=== PATIENT | female | born 1930 | race Caucasian/White ===

== ENCOUNTER 2016-11-26 00:30 | Emergency (ER) | payer MEDICARE, BC ==
[2016-11-26 01:34] LABS: ABSOLUTE BASOPHILS # (AUTO) 0.1 10^3/uL (0.0-0.2); ABSOLUTE EOSINOPHILS # (AUTO) 0.5 10^3/uL (0.0-0.6); ABSOLUTE LYMPHOCYTES (AUTO) 1.4 10^3/uL (0.5-4.7); ABSOLUTE MONOCYTES (AUTO) 0.6 10^3/uL (0.1-1.4); ABSOLUTE NEUT (AUTO) 3.9 10^3/uL (1.7-8.2); BASOPHILS % (AUTO) 0.8 % (0-2); HEMOGLOBIN 12.4 g/dL (12.0-15.5); HGB HCT DIFFERENCE 1.2; LYMPHOCYTES % (AUTO) 20.8 % (13-45); MEAN CORPUSCULAR HEMOGLOBIN 31.7 pg (27.0-33.4); MEAN CORPUSCULAR HGB CONC 34.3 g/dL (32.0-36.0); MEAN CORPUSCULAR VOLUME 93 fl (80-97); MONOCYTES % (AUTO) 9.6 % (3-13); RED CELL DISTRIBUTION WIDTH 14.2 % (11.5-14.0); SEGMENTED NEUTROPHILS % (AUTO) 60.8 % (42-78); WHITE BLOOD COUNT 6.5 10^3/uL (4.0-10.5)
[2016-11-26 01:38] LABS: ALANINE AMINOTRANSFERASE 34 U/L (9-52); ALBUMIN 3.6 g/dL (3.5-5.0); ALKALINE PHOSPHATASE 90 U/L (38-126); ANION GAP 10 (5-19); ASPARTATE AMINO TRANSFERASE 30 U/L (14-36); BILIRUBIN,TOTAL 0.4 mg/dL (0.2-1.3); BLOOD UREA NITROGEN 27 mg/dL (7-20); CALCIUM 9.7 mg/dL (8.4-10.2); CARBON DIOXIDE 29 mmol/L (22-30); CHLORIDE 105 mmol/L (98-107); CREATININE RESULT 0.75 mg/dL (0.52-1.25); GLUCOSE 147 mg/dL (75-110); POTASSIUM 4.4 mmol/L (3.6-5.0); SODIUM 144.2 mmol/L (137-145); TOTAL PROTEIN 6.7 g/dL (6.3-8.2)
[2016-11-26] MEDS ORDERED: PHENYLEPHRINE HCL 0.5% NASAL SPRAY 15 ML NASL ONE (02:05)
--- NOTE | 2016-11-26 02:17 | ER Document Report ---
ED General - General Chief Complaint: Nose Bleed Stated Complaint: NOSE BLEEDING Notes: Patient is a 86-year-old female presents with complaint of nosebleed. Nosebleed started suddenly tonight. She says initially was cannot the right near but now is just on the back of her throat. Patient is up and exit. She is on Pradaxa for A. fib. She also has Plavix due to history of cardiac stents. No fevers. No vomiting. No diarrhea. No difficulty breathing. No other complaints at this time. TRAVEL OUTSIDE OF THE [place] IN LAST 30 DAYS: No Past Medical History - General Information source: Patient - Social History Smoking Status: Never Smoker Frequency of alcohol use: None Drug Abuse: None Family History: Reviewed & Not Pertinent - Past Medical History Cardiac Medical History: Reports: Hx Congestive Heart Failure, Hx Hypercholesterolemia, Hx Hypertension Pulmonary Medical History: Reports: Hx COPD Endocrine Medical History: Reports: Hx Diabetes Mellitus Type 1 Past Surgical History: Reports: Hx Appendectomy, Hx Cardiac Surgery - 2 stents, Hx Cholecystectomy, Hx Hysterectomy Review of Systems - Review of Systems Notes: My Normal Review Basic REVIEW OF SYSTEMS: CONSTITUTIONAL : Denies fever, chills, or sweats. Denies recent illness. EENT: Nosebleed CARDIOVASCULAR: Denies chest pain. RESPIRATORY: Denies cough, cold, or chest congestion. Denies shortness of breath, difficulty breathing, or wheezing. MUSCULOSKELETAL: Denies neck or back pain or joint pain or swelling. SKIN: Denies rash or skin lesions. HEMATOLOGIC : Takes blood thinners NEUROLOGICAL: Denies altered mental status or loss of consciousness. ALL OTHER SYSTEMS REVIEWED AND NEGATIVE. Physical Exam - Vital signs Vitals: Resp BP Pulse Ox 21 H 159/81 H 96 11/26/16 00:51 11/26/16 00:51 11/26/16 00:51 - Notes Notes: General Appearance: Well nourished, alert, cooperative, no acute distress, no obvious discomfort. Well-appearing. Vitals: reviewed, See vital signs table. Head: no swelling or tenderness to the head Eyes: PERRL, EOMI, Conjuctiva clear Mouth: No decreasd moisture Throat: No tonsillar inflammation, No airway obstruction, No lymphadenopathy. Pharynx: Some blood in posterior pharynx Neck: Supple, no neck tenderness, No thyromegaly Nose: Small amount of blood in anterior right near. No active bleeding from anterior source. Lungs: No wheezing, No rales, No rhonci, No accessory muscle use, good air exchange bilaterally. Heart: Normal rate, irregular rythm, No murmur, no rub Abdomen: Normal BS, soft, No rigidity, No abdominal tenderness, No guarding, no rebound, no abdominal masses, no organomegaly Extremities: strength 5/5 in all extremities, good pulses in all extremities, no swelling or tenderness in the extremities, no edema. Skin: warm, dry, appropriate color, no rash Neuro: speech clear, oriented x 3, normal affect, responds appropriately to questions. Course - Vital Signs Vital signs: Temp Pulse Resp BP Pulse Ox 20 165/71 H 92 11/26/16 04:01 11/26/16 04:01 11/26/16 04:01 - Laboratory Result Diagrams: 11/26/16 00:57 11/26/16 00:57 Laboratory results interpreted by me: 11/26/16 11/26/16 11/26/16 00:57 00:57 00:57 RDW 14.2 H Eosinophils % 8.0 H PT 17.0 H BUN 27 H Glucose 147 H - EKG Interpretation by Me Additional EKG results interpreted by me: 11/26/16 02:17 EKG is reviewed and interpreted by me. EKG shows atrial fibrillation with rate of [address] segment elevation. Mild ST segment depression in lead V6. QRS duration QTC intervals are within normal range. No old EKG available for comparison. - Transfer of Care Notes: 11/26/16 06:53 I initially placed a cotton ball soaked with Jamey-Synephrine nasal spray in the patient's nose. This initially stop the bleeding. When patient went to be discharged to set up in the start bleeding again. I then placed a Rhino Rocket nasal packing. Patient now has good control the bleeding is had no further bleeding. She is on digoxin for A. fib. I encourage her to hold tonight's dose of atrial fibrillation. I encourage her to restart atrial fibrillation on Saturday. I encouraged them to return to ER immediately if there are any fevers or any recurrent bleeding. Only 1 nare had to be packed. Patient and family agree with plan and she will be discharged home. I did forget to put the discharge instructions have the packing removed in 2 days. I did call back and speak with the family just to make sure they are aware of this. They are aware of this and said they would come back Saturday to have the packing removed and allow us to reevaluate her nose. Dictation of this chart was performed using voice recognition software; therefore, there may be some unintended grammatical errors. 11/26/16 07:10 Discharge - Discharge Clinical Impression: Epistaxis Condition: Good Disposition: HOME, SELF-CARE Additional Instructions: Nosebleed Instructions There is a significant chance of re-bleeding following a nosebleed. Proper care makes this less likely. Do not touch the nose for 24 hours. Do not blow the nose forcefully for one week. After 24 hours, gently apply Vaseline ointment to both nostrils with the tip of a finger, three times a day, for one week. It's normal to have a bloody mucous discharge for a few days. If active bleeding recurs, blow all the blood from the nose, then sit quietly and pinch the nose as firmly as possible for 10 minutes. If this does not stop the bleeding, return for further care. If packing was left in the nose and it starts to come out of the nostril, either tuck it back in or cut it off. Don't pull it out. Return for recheck and removal of the packing when instructed. Persons with frequent nosebleeds should avoid aspirin (unless prescribed for another reason). Humidity in the bedroom, and petroleum jelly applied to the nostrils at night may help. Please hold your Pradaxa until Saturday. You can take it again started Saturday. Please return to the ER immediately if you have recurrent bleeding that does not stop after holding pressure to your nose for 30 minutes.
[2016-11-26] MEDS ORDERED: PHENYLEPHRINE HCL 0.5% NASAL SPRAY 15 ML ONE (02:24)
[2016-11-26 04:46] VITALS: BP 165/71
--- NOTE | 2016-11-26 12:21 | EKG REPORT ---
SEVERITY:- ABNORMAL ECG - ATRIAL FIBRILLATION VENTRICULAR PREMATURE COMPLEX ANTERIOR INFARCT, AGE INDETERMINATE BORDERLINE T ABNORMALITIES, INFERIOR LEADS [facility] : Confirmed by: Malina Garrett 26-Nov-2016 12:21:02
== END 2016-11-26 05:12 | disposition home or self-care (01) ==
LOC: ER 00:30
PROC: 2Y41X5Z Packing of Nasal Region using Packing Material (ICD-10-PCS; principal; 2016-11-26)
DX: R04.0 Epistaxis (principal); I48.91 Unspecified atrial fibrillation; I50.9 Heart failure, unspecified; E78.00 Pure hypercholesterolemia, unspecified; I10 Essential (primary) hypertension; J44.9 Chronic obstructive pulmonary disease, unspecified; E10.9 Type 1 diabetes mellitus without complications; Z79.01 Long term (current) use of anticoagulants; Z90.49 Acquired absence of other specified parts of digestive tract; Z90.710 Acquired absence of both cervix and uterus
CPT/HCPCS: 36415; 80053; 85025; 85610; 93005; 93010; 99283; J3490

== ENCOUNTER 2016-11-28 09:48 | Emergency (ER) | payer MEDICARE, BC ==
--- NOTE | 2016-11-28 10:35 | ER Document Report ---
ED Medical Screen (RME) - General Chief Complaint: Nose Problem Stated Complaint: FOLLOW UP NOSE PLUG REMOVAL Notes: 86 yo female here for removal of nasal tampon placed in ER 3 days ago. pt on plavix and prodaxa. no bleeding since tampon insertion. pt c/o right facial pain/pressure, headache. low grade fever. Also c/o dysuria, frequency x 4 days. + hx/o frequent UTI. no back pain or abdominal pain. no nausea or vomiting TRAVEL OUTSIDE OF THE [place] IN LAST 30 DAYS: No - Related Data Allergies/Adverse Reactions: procaine [From Novocain] Allergy (Verified 11/28/16 10:09) Past Medical History - Social History Chew tobacco use (# tins/day): No Frequency of alcohol use: None Drug Abuse: None - Past Medical History Cardiac Medical History: Reports: Hx Congestive Heart Failure, Hx Hypercholesterolemia, Hx Hypertension Pulmonary Medical History: Reports: Hx COPD Endocrine Medical History: Reports: Hx Diabetes Mellitus Type 1 Past Surgical History: Reports: Hx Appendectomy, Hx Cardiac Surgery - 2 stents, Hx Cholecystectomy, Hx Hysterectomy Physical Exam - Vital signs Vitals: Temp Pulse Resp BP Pulse Ox 98.4 F 31 L 18 108/78 94 11/28/16 10:10 11/28/16 10:10 11/28/16 10:10 11/28/16 10:10 11/28/16 10:10 Course - Vital Signs Vital signs: Temp Pulse Resp BP Pulse Ox 98.4 F 31 L 18 108/78 94 11/28/16 10:10 11/28/16 10:10 11/28/16 10:10 11/28/16 10:10 11/28/16 10:10
[2016-11-28 11:16] LABS: AMORPHOUS SEDIMENT,URINE TRACE /HPF; APPEARANCE,URINE CLOUDY; BILIRUBIN,URINE NEGATIVE (NEGATIVE); GLUCOSE, URINE >=500 mg/dL (NEGATIVE); KETONES,URINE NEGATIVE (NEGATIVE); LEUKOCYTE ESTERASE,URINE LARGE (NEGATIVE); NITRITE,URINE POSITIVE (NEGATIVE); PROTEIN,URINE NEGATIVE (NEGATIVE); UROBILINOGEN,URINE NEGATIVE mg/dL (<2.0)
--- NOTE | 2016-11-28 12:01 | ER Document Report ---
ED ENT - General Chief Complaint: Nose Problem Stated Complaint: FOLLOW UP NOSE PLUG REMOVAL Time seen by provider: 11:57 Mode of Arrival: Ambulatory Information source: Patient Notes: This is an 86-year-old female with a history of hypertension, atrial fibrillation, coronary artery disease and CHF. The patient presented 2 days ago for epistaxis and had a right nasal trumpet placed. She is here for the right nasal packing removal. Additionally, patient states that she just recently developed symptoms of UTI: Urinary frequency and burning. She denies fever, chills, nausea vomiting. TRAVEL OUTSIDE OF THE [place] IN LAST 30 DAYS: No - HPI Patient complains to provider of: Nose problem, Other - UTI symptoms Onset: Just prior to arrival Onset/Duration: Sudden Quality of pain: denies: Achy, Dull, Sharp, Stabbing, Other Severity: None Pain Level: Denies Context: denies: Allergies, Injury, Recent Illness, Travel, Other Location of pain: No: Ears, Face, Jaw, Neck, Nose, Sinus, Throat, Tooth, Other Associated symptoms: Other - Dysuria. denies: Chills, Fever Similar symptoms previously: Yes Recently seen / treated by doctor: Yes - Related Data Allergies/Adverse Reactions: procaine [From Novocain] Allergy (Verified 11/28/16 11:57) Past Medical History - General Information source: Patient - Social History Smoking Status: Never Smoker Cigarette use (# per day): No Chew tobacco use (# tins/day): No Frequency of alcohol use: None Drug Abuse: None Lives with: Family Family History: Reviewed & Not Pertinent Patient has suicidal ideation: No Patient has homicidal ideation: No - Past Medical History Cardiac Medical History: Reports: Hx Congestive Heart Failure, Hx Hypercholesterolemia, Hx Hypertension Pulmonary Medical History: Reports: Hx COPD Endocrine Medical History: Reports: Hx Diabetes Mellitus Type 1 Past Surgical History: Reports: Hx Appendectomy, Hx Cardiac Surgery - 2 stents, Hx Cholecystectomy, Hx Hysterectomy Review of Systems - Review of Systems Constitutional: denies: Chills, Fever EENT: See HPI Cardiovascular: No symptoms reported Respiratory: No symptoms reported Gastrointestinal: No symptoms reported Genitourinary: See HPI Female Genitourinary: No symptoms reported Musculoskeletal: No symptoms reported Skin: No symptoms reported Hematologic/Lymphatic: No symptoms reported Neurological/Psychological: No symptoms reported Physical Exam - Vital signs Vitals: Temp Pulse Resp BP Pulse Ox 98.4 F 31 L 18 108/78 94 11/28/16 10:10 11/28/16 10:10 11/28/16 10:10 11/28/16 10:10 11/28/16 10:10 Notes: Physical exam: GENERAL: 86-year-old female, alert and oriented 3, no acute distress HEAD: Atraumatic, normocephalic. EYES: Pupils equal round and reactive to light, extraocular movements intact, sclera anicteric, conjunctiva are normal. ENT: Right nasal packing with dried blood, no active bleeding NECK: Normal range of motion, supple LUNGS: Breath sounds clear to auscultation bilaterally and equal. No wheezes rales or rhonchi. HEART: Regular rate and rhythm without murmurs, rubs or gallops. ABDOMEN: Soft, nontender, normoactive bowel sounds. No guarding, no rebound. No masses appreciated. EXTREMITIES: Normal range of motion, no pitting or edema. No clubbing or cyanosis. NEUROLOGICAL: Cranial nerves II through XII grossly intact. Moving all extremities PSYCH: Normal mood, normal affect. Course - Re-evaluation Re-evalutation: 11/28/16 11:59 Saline inserted to the nasal packing via sterile saline syringe. The air cuff was deflated. Nose packing removed. Patient observed for recurrent bleeding. She is doing fine. Instructions given. 11/28/16 11:59 On review of the urine analysis, she does have a urine infection. She cannot remember her previous antibiotics. She does not know if she has any problems with sulfa medicines. 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 I've given the patient Keflex given the number of medicines she is on. I urine culture was sent. 11/28/16 13:08 - Vital Signs Vital signs: Temp Pulse Resp BP Pulse Ox 98.9 F 79 18 163/72 H 94 11/28/16 12:30 11/28/16 12:30 11/28/16 12:30 11/28/16 12:30 11/28/16 12:30 - Laboratory Laboratory results interpreted by me: 11/28/16 11:00 Urine Glucose (UA) >=500 H Urine Nitrite POSITIVE H Ur Leukocyte Esterase LARGE H Discharge - Discharge Clinical Impression: epistaxis, UTI Condition: Stable Disposition: HOME, SELF-CARE Instructions: Urinary Tract Infection ([facility]), Nosebleed Instructions ([facility]) Additional Instructions: Regarding the urine infection: A urine culture was sent and we will contact her in 2 days if the bacteria grows out. Take the Keflex as prescribed. Regarding the nose bleed: Continue the Pradaxa only once daily for the next 2 days and then go back to usual dose. Avoid sneezing. Avoid blowing her nose. Follow-up with ENT: [facility] [address] [place] [address] Toll Free: They do have an office in town: Call the number above for the next available in town office appointment. Prescriptions: Cephalexin Monohydrate [Keflex 500 mg Capsule] 500 mg PO QID #20 capsule
[2016-11-28 12:39] VITALS: BP 163/72
== END 2016-11-28 12:39 | disposition home or self-care (01) ==
LOC: ER 09:48
DX: R04.0 Epistaxis (principal); N39.0 Urinary tract infection, site not specified; I10 Essential (primary) hypertension; I48.91 Unspecified atrial fibrillation; I25.10 Atherosclerotic heart disease of native coronary artery without angina pectoris; I50.9 Heart failure, unspecified
CPT/HCPCS: 81001; 87086; 87088; 87186; 99283

== ENCOUNTER → 2018-06-25 | Outpatient (CLI) | payer MEDICARE, BC ==
--- NOTE | 2018-06-25 14:29 | RADIOLOGY REPORT (SQ) ---
EXAM DESCRIPTION: CT ABD/PELVIS NO ORAL OR IV COMPLETED DATE/TIME: 06/25/2018 2:09 pm REASON FOR STUDY: KIDNEY STONE (N20.0) N20.0 CALCULUS OF KIDNEY R31.0 GROSS HEMATURIA COMPARISON: None. TECHNIQUE: CT scan of the abdomen and pelvis performed without intravenous or oral contrast. Images reviewed with lung, soft tissue, and bone windows. Reconstructed coronal and sagittal MPR images revi ewed. All images stored on PACS. All CT scanners at this facility use dose modulation, iterative reconstruction, and/or weight based d osing when appropriate to reduce radiation dose to as low as reasonably achievable (ALARA). [facility]: Dose Right [facility]: CareDose [facility]: Dose Right [facility]: Teradose 4D [facility]: [employer] RADIATION DOSE: CT Rad equipment meets quality standard of care and radiation dose reduction techniq ues were employed. CTDIvol: 6.7 mGy. DLP: 292 mGy-cm.mGy. LIMITATIONS: Significant streak artifact from metallic hardware in the spine. FINDINGS: LOWER CHEST: No significant findings. No nodules or infiltrates. NON-CONTRASTED LIVER, SPLEEN, ADRENALS: Evaluation limited by lack of IV contrast. No identified sign ificant masses. Punctate calcifications in the spleen consistent with calcified granulomas. PANCREAS: No masses. No peripancreatic inflammatory changes. GALLBLADDER: Surgically absent. RIGHT KIDNEY AND URETER: Possible cortical cyst, measuring 9 mm. No suspicious masses. Assessment li mited by lack of IV contrast. No significant calcifications. No hydronephrosis or hydroureter. LEFT KIDNEY AND URETER: No suspicious masses. Assessment limited by lack of IV contrast. Several ca lyceal calculi, the largest measuring 8 mm. No hydronephrosis or hydroureter. AORTA AND RETROPERITONEUM: No aneurysm. No retroperitoneal masses or adenopathy. BOWEL AND PERITONEAL CAVITY: No obvious masses or inflammatory changes. No free fluid. APPENDIX: Surgically absent. PELVIS, BLADDER, AND ABDOMINAL WALL:No abnormal masses. No free fluid. Bladder normal. BONES: Degenerative changes in the spine. Surgical changes with hardware. OTHER: No other significant finding. IMPRESSION: 1. NUMEROUS NONOBSTRUCTING CALYCEAL CALCULI IN THE LEFT KIDNEY. NO HYDRONEPHROSIS OR HYDROURETER. L IMITED VISUALIZATION OF THE URETER DUE TO METALLIC ARTIFACT FROM SPINAL HARDWARE. 2. POSSIBLE CORTICAL CYST IN THE RIGHT KIDNEY. LIMITED EVALUATION DUE TO LACK OF CONTRAST AND METALL IC ARTIFACT FROM SPINAL HARDWARE. 3. NO OTHER SIGNIFICANT OR ACUTE PROCESS IN THE ABDOMEN OR PELVIS. COMMENT: Quality ID # [id number]: Final reports with documentation of one or more dose reduction techniques (e.g., Automated exposure control, adjustment of the mA and/or kV according to patient size, use of iterative reconstruction technique) TECHNICAL DOCUMENTATION: JOB ID: [id number] [employer]- All Rights Reserved Reading location - IP/workstation name: [email or web address] [id number]
== END ==
LOC: RAD 13:27
PROVIDERS: ATTEND Family Medicine
DX: N20.0 Calculus of kidney (principal)
CPT/HCPCS: 74176

== ENCOUNTER 2018-10-17 07:56 | Inpatient (IN) | payer MEDICARE, BC ==
[2018-10-17] MEDS ORDERED: ASPIRIN 81 MG TABLET, CHEWABLE PO ONE (08:01)
--- NOTE | 2018-10-17 08:13 | ER Document Report ---
ED Cardiac - General Mode of Arrival: Ambulatory Information source: Patient TRAVEL OUTSIDE OF THE [place] IN LAST 30 DAYS: No <JANET PRINCE - Last Filed: 10/17/18 14:55> <MISHEL HARRISON - Last Filed: 10/17/18 14:59> - General Stated Complaint: CHEST PAIN Time Seen by Provider: 10/17/18 08:01 Notes: 88-year-old female who presents to the emergency department today with complaints of an "angina attack". Patient states when she woke up this morning she was also having indigestion. Patient states she has frequent bouts of angina, with her last episode occurring last week. Patient states last week it took 3 nitroglycerin to make her pain free. Patient states she has not had a cardiac catheterization recently, but she cannot remember the last time she had one. Patient has taken aspirin and 2 nitroglycerin at home and also 2 more NTG with EMS which still did not relieve her pain. (JANET PRINCE) - Related Data Allergies/Adverse Reactions: procaine [From Novocain] Allergy (Verified 11/28/16 11:57) Past Medical History - General Information source: Patient - Social History Smoking Status: Never Smoker Cigarette use (# per day): No Frequency of alcohol use: None Drug Abuse: None Family History: Reviewed & Not Pertinent - Past Medical History Cardiac Medical History: Reports: Hx Congestive Heart Failure, Hx Hypercholesterolemia, Hx Hypertension Pulmonary Medical History: Reports: Hx COPD Endocrine Medical History: Reports: Hx Diabetes Mellitus Type 1 Past Surgical History: Reports: Hx Appendectomy, Hx Cardiac Surgery - 2 stents, Hx Cholecystectomy, Hx Hysterectomy <JANET PRINCE - Last Filed: 10/17/18 14:55> Review of Systems - Review of Systems Constitutional: No symptoms reported EENT: No symptoms reported Cardiovascular: See HPI, Chest pain Respiratory: denies: Short of breath Gastrointestinal: No symptoms reported Genitourinary: No symptoms reported Female Genitourinary: No symptoms reported Musculoskeletal: No symptoms reported Skin: No symptoms reported Hematologic/Lymphatic: No symptoms reported Neurological/Psychological: No symptoms reported -: Yes All other systems reviewed and negative <JANET PRINCE - Last Filed: 10/17/18 14:55> Physical Exam <JANET PRINCE - Last Filed: 10/17/18 14:55> <MISHEL HARRISON - Last Filed: 10/17/18 14:59> - Vital signs Vitals: Resp 13 10/17/18 10:12 - Notes Notes: PHYSICAL EXAM GENERAL: Alert, interacts well. No acute distress. Pulse oximetry interpretation : Saturating 96% on room air, not hypoxic per my interpretation. HEAD: Normocephalic, atraumatic. EYES: Pupils equal, round, and reactive to light. Extraocular movements intact. ENT: Oral mucosa moist, tongue midline. NECK: Full range of motion. Supple. Trachea midline. LUNGS: Crackles at the bases bilaterally, no wheezes, rales, or rhonchi. No respiratory distress. HEART: Regular rate and rhythm. 2/6 systolic ejection murmur, no gallops or rubs. ABDOMEN: Soft, non-tender. Non-distended. Bowel sounds present in all 4 quadrants. No guarding, rigidity, or rebound. EXTREMITIES: Moves all 4 extremities spontaneously. 2+ pitting edema bilaterally , radial and dorsalis pedis pulses 2/4 bilaterally. No cyanosis. NEUROLOGICAL: Alert and oriented x3. Normal speech. PSYCH: Normal affect, normal mood. SKIN: Warm and dry. No rashes or lesions noted. (JANET PRINCE) Course - Laboratory Result Diagrams: 10/17/18 08:56 10/17/18 08:56 <JANET PRINCE - Last Filed: 10/17/18 14:55> - Laboratory Result Diagrams: 10/17/18 08:56 10/17/18 08:56 <MISHEL HARRISON - Last Filed: 10/17/18 14:59> - Re-evaluation Re-evalutation: 10/17/18 10:41 CBC shows slight low platelets 138, CMP shows slightly elevated BUN at 23, troponin negative at 0.016, proBNP elevated at 1380. Patient was given Lasix, patient continues to have chest pain after taking multiple nitroglycerin although every time she takes nitroglycerin it does decrease significantly, patient is now been started on nitro drip, she is currently at 30 mcgs per minute, this is taken her pain down to a 2 at this point we will continue to increase so long as her pressure tolerates it. EKG is nonischemic and it was repeated when her chest pain worsened. Chest x-ray shows no acute process. If the patient is able to be chest pain-free on a nitro drip we will then pursue admission at this hospital. 10/17/18 11:57 Nitroglycerin drip is at 55 mcgs per minute, she is now pain-free. Patient was discussed with Dr. Bharat Kiran her primary care physician who agrees to admit the patient to his service and requested consult with Dr. Kearney, this will be entered into the computer. 10/17/18 14:59 (MISHEL HARRISON) - Vital Signs Vital signs: Temp Pulse Resp BP Pulse Ox 19 141/67 H 95 10/17/18 14:01 10/17/18 14:16 10/17/18 14:16 - Laboratory Laboratory results interpreted by me: 10/17/18 10/17/18 10/17/18 08:56 08:56 08:56 RDW 14.3 H Plt Count 138 L BUN 23 H Glucose 139 H NT-Pro-B Natriuret Pep 1380 H - EKG Interpretation by Me Additional EKG results interpreted by me: 10/17/18 10:42 EKG shows atrial fibrillation at a rate of 63, left bundle branch block, negative sgarbossa criteria, no ST segment elevations or depressions, biphasic T waves in the V5 and V6 per my interpretation. 10/17/18 11:57 Repeat EKG shows atrial fibrillation at a rate of 63, interventricular conduction delay with left axis deviation, LVH, no ST segment elevations or depressions, T wave inversions in 1 and aVL unchanged from prior EKG, biphasic T wave in V6, the biphasic T wave in V5 has since resolved per my interpretation. (MISHEL HARRISON) Critical Care Note - Critical Care Note Total time excluding time spent on procedures (mins): 55 <MISHEL HARRISON - Last Filed: 10/17/18 14:59> Discharge <JANET PRINCE - Last Filed: 10/17/18 14:55> - Discharge Admitting Provider: [facility] Admitted: [facility] <MISHEL HARRISON - Last Filed: 10/17/18 14:59> - Discharge Clinical Impression: Chest pain, rule out acute myocardial infarction Condition: Fair Disposition: ADMITTED INPATIENT Scribe Attestation: 10/17/18 14:59 I personally performed the services described in the documentation, reviewed and edited the documentation which was dictated to the scribe in my presence, and it accurately records my words and actions. (MISHEL HARRISON) Scribe Documentation - Scribe Written by Isrraelibe:: Emanuel Peralta, 10/17/2018 1056 acting as scribe for :: Charles <JANET PRINCE - Last Filed: 10/17/18 14:55>
[2018-10-17] MEDS: NITROGLYCERIN 0.4 MG/TAB 25 TAB/BOTTLE SL PRN ×2 (08:56→09:46)
[2018-10-17 09:07] LABS: ABSOLUTE EOSINOPHILS # (AUTO) 0.3 10^3/uL (0.0-0.6); ABSOLUTE LYMPHOCYTES (AUTO) 1.4 10^3/uL (0.5-4.7); ABSOLUTE MONOCYTES (AUTO) 0.6 10^3/uL (0.1-1.4); ABSOLUTE NEUT (AUTO) 7.5 10^3/uL (1.7-8.2); BASOPHILS % (AUTO) 0.4 % (0-2); EOSINOPHILS % (AUTO) 3.1 % (0-6); HEMOGLOBIN 12.5 g/dL (12.0-15.5); LYMPHOCYTES % (AUTO) 14.5 % (13-45); MEAN CORPUSCULAR HEMOGLOBIN 31.9 pg (27.0-33.4); MEAN CORPUSCULAR HGB CONC 33.9 g/dL (32.0-36.0); MEAN CORPUSCULAR VOLUME 94 fl (80-97); MONOCYTES % (AUTO) 5.6 % (3-13); PLATELET COUNT 138 10^3/uL (150-450); RED BLOOD COUNT 3.93 10^6/uL (3.72-5.28); RED CELL DISTRIBUTION WIDTH 14.3 % (11.5-14.0); SEGMENTED NEUTROPHILS % (AUTO) 76.4 % (42-78); TOTAL CELLS COUNTED % (AUTO) 100 %; WHITE BLOOD COUNT 9.8 10^3/uL (4.0-10.5)
[2018-10-17 09:26] LABS: ALANINE AMINOTRANSFERASE 24 U/L (9-52); ALBUMIN 4.3 g/dL (3.5-5.0); ALKALINE PHOSPHATASE 91 U/L (38-126); ASPARTATE AMINO TRANSFERASE 30 U/L (14-36); BILIRUBIN,DIRECT 0.3 mg/dL (0.0-0.4); BILIRUBIN,TOTAL 0.5 mg/dL (0.2-1.3); BLOOD UREA NITROGEN 23 mg/dL (7-20); CARBON DIOXIDE 26 mmol/L (22-30); CREATINE KINASE 67 U/L (30-135); GLUCOSE 139 mg/dL (75-110); POTASSIUM 4.3 mmol/L (3.6-5.0); SODIUM 144.5 mmol/L (137-145); TOTAL PROTEIN 7.3 g/dL (6.3-8.2)
[2018-10-17 09:28] LABS: ANION GAP 12 (5-19); CHLORIDE 107 mmol/L (98-107)
[2018-10-17 09:38] LABS: CREATINE KINASE MB 1.72 ng/mL (<4.55); TROPONIN I 0.016 ng/mL
[2018-10-17] MEDS ORDERED: FUROSEMIDE INJ/PF 40 MG/4 ML SDV IV ONE (09:42)
[2018-10-17] MEDS ORDERED: NITROGLYCERIN/D5W 50 MG/250 ML RTUINJ IV PRN (09:42)
--- NOTE | 2018-10-17 09:43 | RADIOLOGY REPORT (SQ) ---
EXAM DESCRIPTION: CHEST SINGLE VIEW COMPLETED DATE/TIME: 10/17/2018 9:27 am REASON FOR STUDY: chest pain COMPARISON: None. EXAM PARAMETERS: NUMBER OF VIEWS: One view. TECHNIQUE: Single frontal radiographic view of the chest acquired. RADIATION DOSE: NA LIMITATIONS: None. FINDINGS: LUNGS AND PLEURA: Mild chronic appearing interstitial changes. No focal infiltrates, mass es or pneumothorax. No pleural effusion. MEDIASTINUM AND HILAR STRUCTURES: No masses. Contour normal. HEART AND VASCULAR STRUCTURES: Heart upper limits of normal in size. Normal vasculature. BONES: No acute findings. HARDWARE: None in the chest. OTHER: No other significant finding. IMPRESSION: NO ACUTE RADIOGRAPHIC FINDING IN THE CHEST. TECHNICAL DOCUMENTATION: JOB ID: [id number] [employer]- All Rights Reserved Reading location - IP/workstation name: [email or web address]
[2018-10-17] MEDS ORDERED: ACETAMINOPHEN 325 MG TABLET PO PRN (14:43)
[2018-10-17] MEDS ORDERED: MAG HYDROX/AL HYDROX/SIMETH SUSP 30 ML UDCUP PO PRN (14:43)
[2018-10-17] MEDS ORDERED: TRAMADOL HCL 50 MG TABLET PO PRN (14:47)
[2018-10-17] MEDS ORDERED: NITROGLYCERIN 0.4 MG/TAB 25 TAB/BOTTLE SL PRN (14:47)
[2018-10-17] MEDS ORDERED: INSULIN LISPRO 100 UNIT/ML 3 ML VIAL SUBCUT PRN (14:48)
[2018-10-17] MEDS ORDERED: DEXTROSE 50%-WATER 25 GM/50 ML DISP.SYRIN IV PRN ×2 (14:48)
[2018-10-17] MEDS ORDERED: DEXTROSE 40% GEL 15 GM TUBE PO PRN ×2 (14:48)
[2018-10-17] MEDS ORDERED: GLUCAGON,HUMAN RECOMB 1 MG INJ IM PRN (14:48)
--- NOTE | 2018-10-17 15:47 | PDOC H&P ---
History of Present Illness Admission Date/PCP: 10/17/18 12:13 JESSICA ZAPATA MD Patient complains of: Chest pain History of Present Illness: CARLOS GONZALEZ is a 88 year old female This is a 88-year-old female recently moved with her son last for a month with significant history of coronary artery disease status post stent placement history of chronic A. fib history of the hypertension's chronic arthritis and ongoing kidney stone problems with hematuria Patient is currently seeing Dr. Fernando outpatients cardiology and scheduled for the stress test on a Saturday According to the son patient is currently taking the nitroglycerin tablets as needed for the chest pain and patient currently using for the last several days and 2 days patient was brought to the emergency department with complaints of chest pain initial EKG and cardiac enzyme was all stable and patient was put on nitro drip When I saw the patient is patients denied any chest pain denied any shortness of breath Patient was seen by the cardiology Dr. Kearney and suggest to DC the Pradaxa and put him on Eliquis Patient's otherwise denied any short of breath and any cough no congestions no fever no chills and his son is on the bedside was concerned Past Medical History Cardiac Medical History: Reports: Atrial Fibrillation, Congestive Heart Failure , Coronary Artery Disease, Hyperlipidema, Hypertension Pulmonary Medical History: Reports: Chronic Obstructive Pulmonary Disease (COPD) Neurological Medical History: Reports: Ischemic CVA Endocrine Medical History: Reports: Diabetes Mellitus Type 2 Renal/ Medical History: Reports: Chronic Kidney Disease GI Medical History: Reports: Gastroesophageal Reflux Disease Musculoskeltal Medical History: Reports: Arthritis Hematology: Reports: Anemia Past Surgical History Past Surgical History: Reports: Appendectomy, Cardiac Catheterization, Cholecystectomy, Hysterectomy Social History Smoking Status: Never Smoker Frequency of Alcohol Use: None Hx Recreational Drug Use: No Family History Family History: Reviewed & Not Pertinent Parental Family History Reviewed: Yes Children Family History Reviewed: Yes Sibling(s) Family History Reviewed.: Yes Medication/Allergy Home Medications: Buspirone HCl [Buspar 5 mg Tablet] 5 mg PO Q12 10/17/18 Digoxin [Lanoxin 0.125 mg Tablet] 0.125 mg PO DAILY 10/17/18 Diltiazem HCl [Cardizem LA] 300 mg PO DAILY 10/17/18 Furosemide [Lasix 40 mg Tablet] 40 mg PO DAILY 10/17/18 Methimazole [Tapazole 5 mg Tablet] 5 mg PO DAILY 10/17/18 Nitroglycerin 0.4 mg PO Q5MP PRN 10/17/18 Nitroglycerin 0.4 mg SL Q5MP PRN 10/17/18 Potassium Chloride [Klor-Con 10 Meq Capsule ER] 10 meq PO BID 10/17/18 Pravastatin Sodium [Pravachol] 40 mg PO DAILY 10/17/18 Sitagliptin Phosphate [Januvia] 100 mg PO DAILY 10/17/18 Telmisartan [Micardis 80 mg Tablet] 80 mg PO DAILY 10/17/18 Terazosin HCl [Hytrin] 10 mg PO DAILY 10/17/18 Tramadol HCl [Ultram 50 mg Tablet] 50 mg PO Q12HP PRN 10/17/18 Trospium Chloride [Trospium Chloride ER] 60 mg PO DAILY 10/17/18 Allergies/Adverse Reactions: procaine [From Novocain] Allergy (Verified 11/28/16 11:57) Review of Systems Constitutional: ABSENT: chills, fever(s), headache(s), weight gain, weight loss Eyes: ABSENT: visual disturbances Ears: ABSENT: hearing changes Cardiovascular: PRESENT: chest pain. ABSENT: dyspnea on exertion, edema, orthropnea, palpitations Respiratory: ABSENT: cough, hemoptysis Gastrointestinal: ABSENT: abdominal pain, constipation, diarrhea, hematemesis, hematochezia, nausea, vomiting Genitourinary: ABSENT: dysuria, hematuria Musculoskeletal: ABSENT: joint swelling Integumentary: ABSENT: rash, wounds Neurological: ABSENT: abnormal gait, abnormal speech, confusion, dizziness, focal weakness, syncope Psychiatric: ABSENT: anxiety, depression, homidical ideation, suicidal ideation Endocrine: ABSENT: cold intolerance, heat intolerance, menstrual abnormalities, polydipsia, polyuria Hematologic/Lymphatic: ABSENT: easy bleeding, easy bruising, lymphadenopathy Physical Exam Vital Signs: Temp Pulse Resp BP Pulse Ox 19 141/67 H 95 10/17/18 14:01 10/17/18 14:16 10/17/18 14:16 Intake & Output 10/16/18 10/17/18 10/18/18 06:59 06:59 06:59 Output Total 350 Balance -350 Weight 62.142 kg General appearance: PRESENT: no acute distress, well-developed, well-nourished Head exam: PRESENT: atraumatic, normocephalic Eye exam: PRESENT: conjunctiva pink, EOMI, PERRLA. ABSENT: scleral icterus Ear exam: PRESENT: normal external ear exam Mouth exam: PRESENT: moist, tongue midline Neck exam: PRESENT: full ROM. ABSENT: carotid bruit, JVD, lymphadenopathy, thyromegaly Respiratory exam: PRESENT: clear to auscultation christin Cardiovascular exam: PRESENT: RRR. ABSENT: diastolic murmur, rubs, systolic murmur Pulses: PRESENT: normal dorsalis pedis pul, +2 pedal pulses bilateral Vascular exam: PRESENT: normal capillary refill GI/Abdominal exam: PRESENT: normal bowel sounds, soft. ABSENT: distended, guarding, mass, organolmegaly, rebound, tenderness Rectal exam: PRESENT: deferred Extremities exam: ABSENT: pedal edema Neurological exam: PRESENT: alert, awake, oriented to person, oriented to place , oriented to time, oriented to situation, CN II-XII grossly intact. ABSENT: motor sensory deficit Psychiatric exam: PRESENT: appropriate affect, normal mood. ABSENT: homicidal ideation, suicidal ideation Skin exam: PRESENT: dry, intact, warm. ABSENT: cyanosis, rash Results Laboratory Results: 10/17/18 10/17/18 10/17/18 13:43 13:43 13:43 Creatine Kinase 47 CK-MB (CK-2) 1.00 Troponin I 0.012 Cancelled Impressions: Chest X-Ray 10/17/18 08:01 IMPRESSION: NO ACUTE RADIOGRAPHIC FINDING IN THE CHEST. Assessment & Plan - Diagnosis (1) Chest pain, rule out acute myocardial infarction Is this a current diagnosis for this admission?: Yes Plan: We consulted cardiology's continues to current medications (2) Coronary artery disease Qualifiers: Associated angina: angina presence unspecified Is this a current diagnosis for this admission?: Yes Plan: Patient supposed to be in the Ranexa currently not taking restart the Ranexa patient already scheduled for the stress test by cardiology on Saturday according to the Dr. Ledesma and the patient is chest pain-free and the patient's cardiac enzymes were negative patient's discharge (3) Chronic atrial fibrillation Is this a current diagnosis for this admission?: Yes Plan: We will switch to Pradaxa to the Eliquis 2.5 mg p.o. twice a day (4) Hypertension Qualifiers: Hypertension type: essential hypertension Qualified Code(s): I10 - Essential (primary) hypertension Is this a current diagnosis for this admission?: Yes Plan: Continues to current medications (5) Chronic pain syndrome Is this a current diagnosis for this admission?: Yes Plan: She is currently using the tramadol (6) Kidney stone Is this a current diagnosis for this admission?: Yes Plan: She is scheduled for this surgery at [facility] but patients need a clearance from cardiac standpoint and this was patient scheduled for the stress test on a Saturday (7) Gastroesophageal reflux disease Qualifiers: Esophagitis presence: without esophagitis Qualified Code(s): K21.9 - Gastro -esophageal reflux disease without esophagitis Is this a current diagnosis for this admission?: Yes Plan: Continues to PPI - Time Time Spent: 30 to 50 Minutes Medications reviewed and adjusted accordingly: Yes Anticipated discharge: Home Within: Other - Inpatient Certification Based on my medical assessment, after consideration of the patient's comorbidities, presenting symptoms, or acuity I expect that the services needed warrant INPATIENT care.: Yes I certify that my determination is in accordance with my understanding of Medicare's requirements for reasonable and necessary INPATIENT services [42 CFR 412.3e].: Yes Medical Necessity: Need Close Monitoring Due to Risk of Patient Decompensation Post Hospital Care: D/C [employer] [facility] Documentation - Plan Summary Plan Summary: Discussed with the son regarding the patient's condition discussed with the cardiology will continues to monitor the patient
[2018-10-17] MEDS: POTASSIUM CHLORIDE 10 MEQ CAPSULE.ER PO SCH (17:26)
[2018-10-17] MEDS: DOCUSATE SODIUM 100 MG CAPSULE PO SCH (17:26)
[2018-10-17] MEDS: APIXABAN 2.5 MG TABLET PO SCH (17:26)
--- NOTE | 2018-10-17 19:17 | EKG REPORT ---
SEVERITY:- ABNORMAL ECG - ATRIAL FIBRILLATION IVCD, CONSIDER ATYPICAL LBBB : Confirmed by: Mendy Kearney MD 17-Oct-2018 19:17:31
--- NOTE | 2018-10-17 19:17 | EKG REPORT ---
SEVERITY:- ABNORMAL ECG - ATRIAL FIBRILLATION NONSPECIFIC IVCD WITH LAD LVH WITH SECONDARY REPOLARIZATION ABNORMALITY : Confirmed by: Mendy Kearney MD 17-Oct-2018 19:17:26
[2018-10-17 20:09] LABS: CREATINE KINASE MB 0.98 ng/mL (<4.55); TROPONIN I 0.014 ng/mL
--- NOTE | 2018-10-17 21:37 | Progress Note ---
Provider Note Provider Note: CARDIOLOGY CONSULTATION by Dr. Mendy Kearney on 10/17/2018. Patient seen at 12:30 PM on 10/17/2018. 60 minutes spent on this patient, with more than 50 % of the time spent in direct patient care. Medications have been reviewed. SUBJECTIVE: Patient is not a very good historian. Some help in obtaining history from the patient's son. Patient is a 88-year-old female with known history of coronary artery disease, possible prior history of RI, and 2 stents in the LAD in the past, hypertension, GERD, and hyperlipidemia states that she was having anginal symptoms. When asked she said she had a having epigastric burning which is her angina and persisted after the second nitroglycerin, and was relieved with the third nitroglycerin, but came back again. At present the patient is pain-free. She states that she is scheduled for a nuclear medicine stress test by Dr. De La Paz this coming Saturday. The patient denies any shortness of breath, palpitations, diaphoresis, nausea or vomiting. She also has a GERD, but is not able to say if this is different from her GERD symptoms. She also has a history of chronic atrial fibrillation, and as per her medication sheet that she has she is supposed to be on Pradaxa. Pharmacy has researched and found out that she has not filled the Pradaxa in some time. There is no PND orthopnea or leg edema. There is no palpitations, and near syncope or syncope. PAST MEDICAL HISTORY: She has a history of hypertension. She also states that she has a history of coronary artery disease, and possibly was told that she had is mild heart attack in the past. As per her stent card she has had 2 stents in the LAD in the remote past. The patient thinks it might be in 2009, but is not sure since then she has been having episodes of angina relieved with usually 3 nitroglycerin. This did not happen and hence the patient came to the emergency room. She also has a history of chronic atrial fibrillation. But the rate seems to be well-controlled. She is supposedly on Pradaxa, which the pharmacy states that she has not been taking it since she has not filled the prescription. She has a past history of TIA, with no recurrence. In June she had gross hematuria, and was found to have multiple calculi in the kidney the largest being 8 mm in the left kidney and ureter. The right kidney had a cortical cyst. She has no history of chronic kidney disease. There is no history of diabetes mellitus. She has a history of hyperthyroidism, and is on Tapazole. There is no history of chronic kidney disease. There is no history of asthma or COPD. PAST surgical History: She has had 2 growths removed from the best breast both benign. She is also had a history of surgery for bladder bladder prolapse, and subsequently hysterectomy. She is also had a cardiac catheterization and stent placement. SOCIAL HISTORY: The patient does not smoke. There is no history of EtOH abuse. ALLERGY: Patient is allergic to procaine. FAMILY HISTORY: Is positive for hypertension and coronary artery disease. DISPOSITION: The patient is a full code. Her son is a surrogate healthcare decision maker. REVIEW OF SYSTEMS: CONSTITUTIONAL: Denies any fever chills or rigors. There is no fatigue or generalized weakness. EYES: No history of MAA diplopia. No history of amaurosis fugax. EARS: No history of hearing loss. No tinnitus. No history of vertigo. NOSE: No history of hayfever. No history of nosebleeds. MOUTH: No history of ulcers in the mouth. No bleeding from the gums. No altered taste sensation. THROAT: No odynophagia or dysphagia. No recurrent sore throats. SKIN: No pruritus. No alert discoloration of the skin. No history of skin cancer or psoriasis. NECK: No history of neck pain no swelling in the neck. No goiter. LUNGS: No history of asthma or COPD. No history of cough or sputum production no wheezing. No symptoms of upper or lower respiratory tract infection. No history of pulmonary emboli. No hemoptysis. No pleuritic chest pain. No history of sleep apnea. HEART: History of hypertension present history of chronic atrial fibrillation of Merrem as mentioned earlier. It seems that the patient did stop taking her Pradaxa. The patient states she was told that she might have had a mild RI in the past. History of LAD stents. It is not clear when the last stress test was done. The patient recently moved from [place]. She is scheduled to have a nuclear stress test by Dr. De La Paz this coming Saturday next week. There is a prior history of congestive heart failure when she was having atrial fibrillation with rapid ventricular response. No recent symptoms of heart failure. No history of PND orthopnea or leg edema. Denies palpitations, or near syncope or syncope. GI: History of GERD present. No history of GI bleed. No history of fatty food intolerance. No history of hepatitis. No history of jaundice. No history of altered bowel movements. MUSCULOSKELETAL: History of arthritis present. No history of collagen vascular disease. METABOLIC: No history of obesity. History of hyperlipidemia, and history of gout. ENDOCRINE : No history of diabetes mellitus. She has hypothyroidism, and recently is back on Tapazole. No history of polydipsia polyuria. No heat or cold intolerance. No hirsutism. No excessive sweating. RENAL: No history of chronic kidney disease. No recent symptoms of urinary tract infection. Gross hematuria in June 2018, when she was found to have multiple calculi and a large calculus of 8 mm in the left kidney/ureter. Patient is probably going to have surgical removal of this after his stress test is done. There is no symptoms of recent hematuria. There is no pyuria or dysuria. RADIOLOGY DIRECTOR: Past history of TIA, with no recurrence. No CVA. No headaches migraines or seizures. The patient is very forgetful. No history of gait imbalance PSYCHIATRIC: No history of anxiety or depression. No suicidal ideation. No homicidal ideation. VASCULAR: No history of calf or buttock claudication. No history of DVT HEMATOLOGY: No history of anemia. No history of bleeding diathesis. No history of clotting disorders no blood dyscrasias. PHYSICAL EXAMINATION: The patient is well-built and well-nourished. At present in no acute distress. She is well-groomed. Selected Entries 10/17/18 10/17/18 14:31 15:11 Temperature 98.1 F Temperature Oral Source Pulse Rate 63 Respiratory 18 Rate Respiratory Normal Depth Respiratory Normal Effort Non-Labored Respiratory Normal Pattern Blood Pressure 137/46 H [Right] Blood Pressure 76 Mean [Right] Blood Pressure Supine Position [Right ] O2 Sat by Pulse 92 Oximetry Oxygen Delivery Room Air Method ( includes room air) HEAD: Head is atraumatic. Normocephalic. EYES: Pupils are equal round regular , reactive to light and accommodation. Ears: Tympanic membranes are intact. External auditory canals are clear. NOSE: There is no deviated nasal septum. There is no inflammation of the nasal mucous membrane. MOUTH: Mucous members of the mouth are moist. Tongue is moist. There is no ulcers. There is no bleeding from the gums. THROAT: There is no redness of the oropharynx, there is no exudates in the throat. SKIN: There is no skin rashes or skin lesions. There is no petechia or ecchymosis. NECK: Is supple. There is no JVD. Carotids are equal there is no bruits. There is no lymphadenopathy. There is no goiter. There is no accessory muscles of respiration in use. Trachea central LUNGS: Is clear to auscultation percussion without any rhonchi rales or wheezing. There is no chest wall tenderness on palpation HEART: S1-S2 is heard. S1 is of variable intensity. There is no S3 gallop there is no S4 gallop. There is systolic murmur left sternal border and apex there is no rub. ABDOMEN: Is soft. Nontender. There is no hepatosplenomegaly. Bowel sounds are well heard. There is no tender areas masses. There is no rebound guarding or rigidity. EXTREMITIES: Femorals are well felt. There is no femoral bruits. Leg pulses are well felt. There is no pedal edema. There is no DVT or cellulitis. There is no calf tenderness. There is no signs of clubbing. RADIOLOGY DIRECTOR: The patient is conscious awake alert oriented x3 with no focal deficits. PSYCHIATRIC: The patient judgment and insight are intact she is slightly forgetful. 10/17/18 10/17/18 10/17/18 08:56 08:56 08:56 WBC 9.8 Hgb 12.5 Hct 37.0 Plt Count 138 L Sodium 144.5 Potassium 4.3 Chloride 107 Carbon Dioxide 26 Anion Gap 12 BUN 23 H Creatinine 0.86 Est GFR (Non-Af Amer) > 60 Glucose 139 H POC Glucose Calcium 10.0 Total Bilirubin 0.5 Direct Bilirubin 0.3 Neonat Total Bilirubin Not Reportable Neonat Direct Bilirubin Not Reportable Neonat Indirect Bili Not Reportable AST 30 ALT 24 Alkaline Phosphatase 91 Creatine Kinase 67 CK-MB (CK-2) 1.72 Troponin I 0.016 NT-Pro-B Natriuret Pep 1380 H Total Protein 7.3 Albumin 4.3 10/17/18 10/17/18 10/17/18 13:43 13:43 13:43 WBC Hgb Hct Plt Count Sodium Potassium Chloride Carbon Dioxide Anion Gap BUN Creatinine Est GFR (Non-Af Amer) Glucose POC Glucose Calcium Total Bilirubin Direct Bilirubin Neonat Total Bilirubin Neonat Direct Bilirubin Neonat Indirect Bili AST ALT Alkaline Phosphatase Creatine Kinase 47 CK-MB (CK-2) 1.00 Troponin I 0.012 NT-Pro-B Natriuret Pep Total Protein Albumin 10/17/18 10/17/18 10/17/18 15:44 19:25 19:25 WBC Hgb Hct Plt Count Sodium Potassium Chloride Carbon Dioxide Anion Gap BUN Creatinine Est GFR (Non-Af Amer) Glucose POC Glucose 106 Calcium Total Bilirubin Direct Bilirubin Neonat Total Bilirubin Neonat Direct Bilirubin Neonat Indirect Bili AST ALT Alkaline Phosphatase Creatine Kinase 47 CK-MB (CK-2) 0.98 Troponin I 0.014 NT-Pro-B Natriuret Pep Total Protein Albumin EKG: Atrial Fibrillation with Controlled Ventricular Response. LVH by Voltage. Left Tonasket Deviation/LAFB. CHEST X-Ray: Is Negative. 10/17/18 08:01 Aspirin [Aspirin 81 mg Chewable Tablet] 324 mg PO NOW ONE 10/17/18 09:42 Furosemide [Lasix Inj/Pf 40 mg/4 ml Sdv] 40 mg IV NOW ONE Nitroglycerin/D5w [Ntg RTU 50 mg/D5w 250 ml IV Premix Bottle] 50 mg in 250 ml IV CONTINUOUS 10/17/18 14:43 Acetaminophen [Tylenol 325 mg Tablet] 650 mg PO Q4HP PRN Mag Hydrox/Al Hydrox/Simeth [Maalox Plus Susp 30 Udcup] 15 ml PO Q6HP PRN 10/17/18 14:47 Nitroglycerin [Nitrostat 0.4 mg (1/150 Gr) Tabs 25/Bottle] 1 tab SL Q5MP PRN Tramadol HCl [Ultram 50 mg Tablet] 50 mg PO Q12HP PRN 10/17/18 14:48 Dextrose 50%-Water [Dextrose Inj 50% Syringe (25 gm/50 ml)] 12.5 gm IV PRN PRN Dextrose 50%-Water [Dextrose Inj 50% Syringe (25 gm/50 ml)] 25 gm IV PRN PRN Dextrose [Glutose 40% Gel 15 gm Tube] 15 gm PO PRN PRN Dextrose [Glutose 40% Gel 15 gm Tube] 30 gm PO PRN PRN Glucagon,Human Recombinant [Glucagen Inj 1 mg Vial] 1 mg IM PRN PRN Insulin Lispro [Humalog Insulin 100 Unit/1 ml 3 ml Vial] 0 - 12 unit SUBCUT ACHSP PRN 10/17/18 18:00 Apixaban [Eliquis 2.5 mg Tablet] 2.5 mg PO BID Docusate Sodium [Colace 100 mg Capsule] 100 mg PO BID Potassium Chloride [Klor-Con 10 Meq Capsule ER] 10 meq PO BID 10/17/18 22:00 Aspirin [Aspirin 81 mg Chewable Tablet] 81 mg PO QHS Atorvastatin Calcium [Lipitor 10 mg Tablet] 10 mg PO QHS Buspirone HCl [Buspar 10 mg Tablet] 5 mg PO Q12 10/18/18 10:00 Digoxin [Lanoxin 0.125 mg Tablet] 0.125 mg PO DAILY Diltiazem HCl [Cardizem Cd 120 mg Capsule] 120 mg PO DAILY Diltiazem HCl [Cardizem Cd 180 mg Capsule] 180 mg PO DAILY Doxazosin Mesylate [Cardura 4 mg Tablet] 8 mg PO DAILY Furosemide [Lasix 40 mg Tablet] 40 mg PO DAILY Losartan Potassium [Cozaar 50 mg Tablet] 100 mg PO DAILY Methimazole [Tapazole 5 mg Tablet] 5 mg PO DAILY Sitagliptin Phosphate [Januvia 50 mg Tablet] 100 mg PO DAILY Trospium Chloride [Trospium Chloride ER] 60 mg PO .DAILY IMPRESSION/RECOMMENDATION: 1. Anginal symptoms. No evidence of non-ST elevation or ST elevation RI. Continue aspirin, continue nitroglycerin drip, which is a 20 mcg/min. Continue Cardizem. Later would recommend tapering off the IV nitroglycerin, and transitioning into a p.o. Imdur. Will add Ranexa. Would recommend maximizing the patient's anti-CAD medication, and discharge the patient to follow-up with her welding machine setter, who has already scheduled outpatient nuclear stress test for the patient. 2. Coronary artery disease. History of 2 stents in the LAD. 3. Hypertension: Seems to be well-controlled. 4. Atrial fibrillation with controlled ventricular response: Continue of Cardizem. In view of the patient's prior history of TIA, and the patient's corrected chads vasc 2 score of 6, chronic anticoagulation is recommended. In view of the patient's GERD symptoms, would avoid Pradaxa, and place the patient Eliquis 2.5 mg p.o. twice daily. Also at the same time would watch for any hematuria, since the patient has renal stones. 5. Hypothyroidism: Continue Tapazole. Check the patient's thyroid function test in the a.m. 6. Hyperlipidemia: Continue statin. 7. History of gout: Watch for any recurrence. 8. History of multiple stones and a large stone of 8 mm size in the left kidney /ureter. The patient being followed as an outpatient by an urologist in [place]. Medications to be reviewed, and medications adjusted. Management plans were discussed with Dr. Kiran the attending physician. 60 minutes spent on this patient more than 50% of time spent in direct patient care medical decision making is of high complexity. Will follow with you.
[2018-10-17] MEDS ORDERED: (PENDING PHARMACY ID) (Buspirone Hcl [Buspar 5 Mg Tablet] 5 MG) PO SCH (22:00)
[2018-10-17] MEDS: BUSPIRONE HCL 10 MG TABLET PO SCH (22:11)
[2018-10-17] MEDS: RANOLAZINE 500 MG TAB.SR.12H PO SCH (22:11)
[2018-10-17] MEDS: ATORVASTATIN CALCIUM 10 MG TABLET PO SCH (22:12)
[2018-10-17] MEDS: ASPIRIN 81 MG TABLET, CHEWABLE PO SCH (22:12)
[2018-10-18 02:55] LABS: ABSOLUTE EOSINOPHILS # (AUTO) 0.3 10^3/uL (0.0-0.6); ABSOLUTE LYMPHOCYTES (AUTO) 2.1 10^3/uL (0.5-4.7); ABSOLUTE MONOCYTES (AUTO) 0.5 10^3/uL (0.1-1.4); ABSOLUTE NEUT (AUTO) 3.5 10^3/uL (1.7-8.2); BASOPHILS % (AUTO) 0.5 % (0-2); EOSINOPHILS % (AUTO) 4.8 % (0-6); HEMATOCRIT 32.9 % (36.0-47.0); HEMOGLOBIN 11.5 g/dL (12.0-15.5); LYMPHOCYTES % (AUTO) 32.4 % (13-45); MEAN CORPUSCULAR HEMOGLOBIN 32.2 pg (27.0-33.4); MEAN CORPUSCULAR HGB CONC 34.8 g/dL (32.0-36.0); MEAN CORPUSCULAR VOLUME 93 fl (80-97); MONOCYTES % (AUTO) 8.2 % (3-13); PLATELET COUNT 134 10^3/uL (150-450); RED BLOOD COUNT 3.55 10^6/uL (3.72-5.28); RED CELL DISTRIBUTION WIDTH 14.1 % (11.5-14.0); SEGMENTED NEUTROPHILS % (AUTO) 54.1 % (42-78); TOTAL CELLS COUNTED % (AUTO) 100 %; WHITE BLOOD COUNT 6.4 10^3/uL (4.0-10.5)
[2018-10-18 03:23] LABS: ANION GAP 9 (5-19); BLOOD UREA NITROGEN 25 mg/dL (7-20); CALCIUM 9.3 mg/dL (8.4-10.2); CARBON DIOXIDE 29 mmol/L (22-30); CHLORIDE 105 mmol/L (98-107); CHOLESTEROL 116.59 mg/dL (0-200); GLUCOSE 135 mg/dL (75-110); POTASSIUM 3.7 mmol/L (3.6-5.0); SODIUM 143.2 mmol/L (137-145); TRIGLYCERIDES 151 mg/dL (<150)
[2018-10-18 03:24] LABS: CREATINE KINASE MB 0.78 ng/mL (<4.55)
[2018-10-18 03:30] LABS: TROPONIN I < 0.012 ng/mL
[2018-10-18 03:33] LABS: DIRECT LDL 76 mg/dL (<100)
[2018-10-18 03:34] LABS: VLDL CHOLESTEROL 30.2 mg/dL (10-31)
[2018-10-18 03:39] LABS: FREE T3 3.43 pg/mL (2.77-5.27); FREE T4 (FREE THYROXINE) 0.84 ng/dL (0.78-2.19)
[2018-10-18 03:53] LABS: THYROID STIMULATING HORMONE 1.5 uIU/mL (0.47-4.68)
[2018-10-18] MEDS ORDERED: NITROGLYCERIN 15 MG (0.6 MG/1 HR) PATCH.TD24 TD ONE (07:15)
[2018-10-18] MEDS: NITROGLYCERIN 15 MG (0.6 MG/1 HR) PATCH.TD24 TD SCH (08:31)
--- NOTE | 2018-10-18 09:01 | PDOC PROGRESS REPORT ---
Subjective Progress Note for:: 10/18/18 Subjective:: Patient is currently doing well Denied any chest pain denied any shortness of the breath Patient currently on a nitroglycerin 15 and try to wean off and put on Nitropaste by ed special education teacher As per discussed with the ed special education teacher to just order the CT angiogram Reason For Visit: CHEST PAIN Physical Exam Vital Signs: Temp Pulse Resp BP Pulse Ox 97.9 F 73 16 150/84 H 96 10/18/18 07:23 10/18/18 08:30 10/18/18 07:23 10/18/18 08:30 10/18/18 07:23 Intake & Output 10/17/18 10/18/18 10/19/18 06:59 06:59 06:59 Intake Total 342 54 Output Total 350 Balance -8 54 Weight 63.9 kg General appearance: PRESENT: no acute distress, well-developed, well-nourished Head exam: PRESENT: atraumatic, normocephalic Eye exam: PRESENT: conjunctiva pink, EOMI, PERRLA. ABSENT: scleral icterus Ear exam: PRESENT: normal external ear exam Mouth exam: PRESENT: moist, tongue midline Neck exam: PRESENT: full ROM. ABSENT: carotid bruit, JVD, lymphadenopathy, thyromegaly Respiratory exam: PRESENT: clear to auscultation christin Cardiovascular exam: PRESENT: RRR. ABSENT: diastolic murmur, rubs, systolic murmur Pulses: PRESENT: normal dorsalis pedis pul, +2 pedal pulses bilateral Vascular exam: PRESENT: normal capillary refill GI/Abdominal exam: PRESENT: normal bowel sounds, soft. ABSENT: distended, guarding, mass, organolmegaly, rebound, tenderness Rectal exam: PRESENT: deferred Extremities exam: ABSENT: pedal edema Musculoskeletal exam: PRESENT: ambulatory Neurological exam: PRESENT: alert, awake, oriented to person, oriented to place , oriented to time, oriented to situation, CN II-XII grossly intact. ABSENT: motor sensory deficit Psychiatric exam: PRESENT: appropriate affect, normal mood. ABSENT: homicidal ideation, suicidal ideation Skin exam: PRESENT: dry, intact, warm. ABSENT: cyanosis, rash Results Laboratory Results: 10/18/18 02:45 10/18/18 02:45 10/18/18 10/18/18 10/18/18 02:45 02:45 02:45 WBC 6.4 RBC 3.55 L Hgb 11.5 L Hct 32.9 L MCV 93 MCH 32.2 MCHC 34.8 RDW 14.1 H Plt Count 134 L Seg Neutrophils % 54.1 Lymphocytes % 32.4 Monocytes % 8.2 Eosinophils % 4.8 Basophils % 0.5 Absolute Neutrophils 3.5 Absolute Lymphocytes 2.1 Absolute Monocytes 0.5 Absolute Eosinophils 0.3 Absolute Basophils 0.0 Sodium 143.2 Potassium 3.7 Chloride 105 Carbon Dioxide 29 Anion Gap 9 BUN 25 H Creatinine 0.88 Est GFR ( Amer) > 60 Est GFR (Non-Af Amer) > 60 Glucose 135 H Calcium 9.3 Magnesium 1.9 Triglycerides 151 H Cholesterol 116.59 LDL Cholesterol Direct 76 VLDL Cholesterol 30.2 HDL Cholesterol 40 TSH 1.50 Free T4 0.84 Free T3 pg/mL 3.43 10/17/18 10/17/18 10/17/18 13:43 13:43 13:43 Creatine Kinase 47 CK-MB (CK-2) 1.00 Troponin I 0.012 Cancelled NT-Pro-B Natriuret Pep 10/17/18 10/17/18 10/18/18 19:25 19:25 02:45 Creatine Kinase 47 45 CK-MB (CK-2) 0.98 Troponin I 0.014 NT-Pro-B Natriuret Pep 10/18/18 10/18/18 02:45 02:45 Creatine Kinase CK-MB (CK-2) 0.78 Troponin I < 0.012 NT-Pro-B Natriuret Pep 1090 H Impressions: Chest X-Ray 10/17/18 08:01 IMPRESSION: NO ACUTE RADIOGRAPHIC FINDING IN THE CHEST. Assessment & Plan - Diagnosis (1) Chest pain, rule out acute myocardial infarction Is this a current diagnosis for this admission?: Yes Plan: We consulted cardiology's continues to current medications (2) Coronary artery disease Qualifiers: Associated angina: angina presence unspecified Is this a current diagnosis for this admission?: Yes Plan: Patient supposed to be in the Ranexa currently not taking restart the Ranexa patient already scheduled for the stress test by cardiology on Saturday according to the Dr. Ledesma and the patient is chest pain-free and the patient's cardiac enzymes were negative patient's discharge (3) Chronic atrial fibrillation Is this a current diagnosis for this admission?: Yes Plan: We will switch to Pradaxa to the Eliquis 2.5 mg p.o. twice a day (4) Hypertension Qualifiers: Hypertension type: essential hypertension Qualified Code(s): I10 - Essential (primary) hypertension Is this a current diagnosis for this admission?: Yes Plan: Continues to current medications (5) Chronic pain syndrome Is this a current diagnosis for this admission?: Yes Plan: She is currently using the tramadol (6) Kidney stone Is this a current diagnosis for this admission?: Yes Plan: She is scheduled for this surgery at [facility] but patients need a clearance from cardiac standpoint and this was patient scheduled for the stress test on a Saturday (7) Gastroesophageal reflux disease Qualifiers: Esophagitis presence: without esophagitis Qualified Code(s): K21.9 - Gastro -esophageal reflux disease without esophagitis Is this a current diagnosis for this admission?: Yes Plan: Continues to PPI - Time Time Spent with patient: 15-24 minutes Medications reviewed and adjusted accordingly: Yes Anticipated discharge: Home Within: within 24 hours - Inpatient Certification Based on my medical assessment, after consideration of the patient's comorbidities, presenting symptoms, or acuity I expect that the services needed warrant INPATIENT care.: Yes I certify that my determination is in accordance with my understanding of Medicare's requirements for reasonable and necessary INPATIENT services [42 CFR 412.3e].: Yes Medical Necessity: Significant Comorbidiites Make Outpatient Treatment Too Risky , Need Close Monitoring Due to Risk of Patient Decompensation Post Hospital Care: D/C Cafeteria Aide Documentation - Plan Summary Plan Summary: Will order the CT angiogram Try to wean off nitro drip
[2018-10-18] MEDS: POTASSIUM CHLORIDE 10 MEQ CAPSULE.ER PO SCH ×2 (09:12→17:23)
[2018-10-18] MEDS: FUROSEMIDE 40 MG TABLET PO SCH (09:14)
[2018-10-18] MEDS: DIGOXIN 0.125 MG TABLET PO SCH (09:15)
[2018-10-18] MEDS: DILTIAZEM HCL 120 MG CAP.SR.24H PO SCH (09:15)
[2018-10-18] MEDS: DOCUSATE SODIUM 100 MG CAPSULE PO SCH ×2 (09:16→17:23)
[2018-10-18] MEDS: DILTIAZEM HCL 180 MG CAPSULE.CR PO SCH (09:16)
[2018-10-18] MEDS: APIXABAN 2.5 MG TABLET PO SCH ×2 (09:16→17:23)
[2018-10-18] MEDS: DOXAZOSIN MESYLATE 4 MG TABLET PO SCH (09:16)
[2018-10-18] MEDS: LOSARTAN POTASSIUM 50 MG TABLET PO SCH (09:17)
[2018-10-18] MEDS ORDERED: (PENDING PHARMACY ID) (Telmisartan [Micardis 80 Mg Tablet] 80 MG) PO SCH (10:00)
[2018-10-18] MEDS ORDERED: (PENDING PHARMACY ID) (Terazosin Hcl [Hytrin] 10 MG) PO SCH (10:00)
[2018-10-18] MEDS ORDERED: SITAGLIPTIN PHOSPHATE 50 MG TABLET PO SCH ×2 (10:00→17:00)
[2018-10-18] MEDS ORDERED: (PENDING PHARMACY ID) (Pravastatin Sodium [Pravachol] 40 MG) PO SCH (10:00)
[2018-10-18] MEDS ORDERED: ENOXAPARIN SODIUM INJ 40 MG/0.4 ML DISP.SYRIN SUBCUT SCH (10:00)
[2018-10-18] MEDS ORDERED: TROSPIUM CHLORIDE 60 MG PO SCH (10:00)
[2018-10-18] MEDS ORDERED: DILTIAZEM HCL 300 MG PO SCH (10:00)
[2018-10-18] MEDS: METHIMAZOLE 5 MG TABLET PO SCH (12:27)
[2018-10-18] MEDS: RANOLAZINE 500 MG TAB.SR.12H PO SCH ×2 (12:27→21:58)
[2018-10-18] MEDS: BUSPIRONE HCL 10 MG TABLET PO SCH ×2 (12:27→21:59)
--- NOTE | 2018-10-18 14:50 | Progress Note ---
Provider Note Provider Note: CARDIOLOGY PROGRESS NOTES by Dr. Mendy Kearney on 10/18/2018. SUBJECTIVE: The patient denies any further chest pain or discomfort. There is no palpitations. The patient continues to be in atrial fibrillation, with a controlled ventricular response. There is no cough or wheezing. There is no leg edema. There is no PND orthopnea. There is no ventricular arrhythmias seen on the monitor. A troponin serially have been negative. We have been successful in weaning her off the IV nitroglycerin, and she is on a Transderm- Nitro patch. There is no TIA or CVA symptoms. There is no bleeding on current anticoagulation. PHYSICAL EXAMINATION: The patient is moderately obese. She is well-groomed. She is in no acute distress. 10/18/18 07:23 Temperature 97.9 F Temperature Oral Source Pulse Rate 62 Blood Pressure 152/79 H Blood Pressure 103 Mean BP Location Left Arm BP Position Supine O2 Sat by Pulse 96 Oximetry Oxygen Delivery Room Air Method HEAD: Head is atraumatic. Normocephalic. EYES: Pupils are equal round regular , reactive to light and accommodation. Ears: Tympanic membranes are intact. External auditory canals are clear. NOSE: There is no deviated nasal septum. There is no inflammation of the nasal mucous membrane. MOUTH: Mucous members of the mouth are moist. Tongue is moist. There is no ulcers. There is no bleeding from the gums. THROAT: There is no redness of the oropharynx, there is no exudates in the throat. SKIN: There is no skin rashes or skin lesions. There is no petechia or ecchymosis. NECK: Is supple. There is no JVD. Carotids are equal there is no bruits. There is no lymphadenopathy. There is no goiter. There is no accessory muscles of respiration in use. Trachea central LUNGS: Is clear to auscultation percussion without any rhonchi rales or wheezing. There is no chest wall tenderness on palpation HEART: S1-S2 is heard. S1 is of variable intensity. There is no S3 gallop there is no S4 gallop. There is systolic murmur left sternal border and apex there is no rub. ABDOMEN: Is soft. Nontender. There is no hepatosplenomegaly. Bowel sounds are well heard. There is no tender areas masses. There is no rebound guarding or rigidity. EXTREMITIES: Femorals are well felt. There is no femoral bruits. Leg pulses are well felt. There is no pedal edema. There is no DVT or cellulitis. There is no calf tenderness. There is no signs of clubbing. SPRAY GUNNER: The patient is conscious awake alert oriented x3 with no focal deficits. PSYCHIATRIC: The patient judgment and insight are intact she is slightly forgetful. 10/18/18 10/18/18 10/18/18 02:45 02:45 02:45 WBC Hgb Hct Plt Count Sodium 143.2 Potassium 3.7 Chloride 105 Carbon Dioxide 29 Anion Gap 9 BUN 25 H Creatinine 0.88 Est GFR (Non-Af Amer) > 60 Glucose 135 H POC Glucose Calcium 9.3 Magnesium 1.9 Creatine Kinase 45 CK-MB (CK-2) Troponin I NT-Pro-B Natriuret Pep Triglycerides 151 H Cholesterol 116.59 LDL Cholesterol Direct 76 VLDL Cholesterol 30.2 HDL Cholesterol 40 TSH 1.50 Free T4 0.84 Free T3 pg/mL 3.43 10/18/18 10/18/18 10/18/18 02:45 02:45 02:45 WBC 6.4 Hgb 11.5 L Hct 32.9 L Plt Count 134 L Sodium Potassium Chloride Carbon Dioxide Anion Gap BUN Creatinine Est GFR (Non-Af Amer) Glucose POC Glucose Calcium Magnesium Creatine Kinase CK-MB (CK-2) 0.78 Troponin I < 0.012 NT-Pro-B Natriuret Pep 1090 H Triglycerides Cholesterol LDL Cholesterol Direct VLDL Cholesterol HDL Cholesterol TSH Free T4 Free T3 pg/mL 10/18/18 10/18/18 06:05 12:00 WBC Hgb Hct Plt Count Sodium Potassium Chloride Carbon Dioxide Anion Gap BUN Creatinine Est GFR (Non-Af Amer) Glucose POC Glucose 122 H 145 H Calcium Magnesium Creatine Kinase CK-MB (CK-2) Troponin I NT-Pro-B Natriuret Pep Triglycerides Cholesterol LDL Cholesterol Direct VLDL Cholesterol HDL Cholesterol TSH Free T4 Free T3 pg/mL IMPRESSION/RECOMMENDATION: 1. Anginal symptoms. No evidence of non-ST elevation or ST elevation NV. Continue aspirin, continue nitroglycerin drip, which is a 20 mcg/min. Continue Cardizem. The patient had tapering off the IV nitroglycerin, and transitioning into topical nitro patch. Will add Ranexa. Could continue Eliquis would recommend maximizing the patient's anti-CAD medication, and discharge the patient to follow-up with her sports centre manager, who has already scheduled outpatient nuclear stress test for the patient. Note that anginal symptoms have resolved. 2. Coronary artery disease. History of 2 stents in the LAD. Patient has no further anginal symptoms. 3. Hypertension: Seems to be well-controlled. 4. Atrial fibrillation with controlled ventricular response: Continue of Cardizem. In view of the patient's prior history of TIA, and the patient's corrected chads vasc 2 score of 6, chronic anticoagulation is recommended. In view of the patient's GERD symptoms, would avoid Pradaxa, and continue the patient Eliquis 2.5 mg p.o. twice daily. Also at the same time would watch for any hematuria, since the patient has renal stones. 5. Hypothyroidism: Continue Tapazole. Check the patient's thyroid function test in the a.m. 6. Hyperlipidemia: Continue statin. 7. History of gout: Watch for any recurrence. 8. Left renal and ureteral calculi: History of multiple stones and a large stone of 8 mm size in the left kidney/ureter. The patient being followed as an outpatient by an urologist in [place]. 9. Elevated NT Pro BNP:? Etiology. Patient having a pulmonary CT angiogram to rule out the possibility of pulmonary embolism. Her medications have been reviewed. Medication was adjusted and changed. Discussed the plan of care with Dr. Kiran the attending physician on the case. Awaiting results of the pulmonary CT angiogram. Medical decision making is of high complexity. 40 minutes spent on this patient more than 50% of time spent in direct patient care. Will sign off. Hopefully the patient can be discharged home tomorrow morning. Addendum: CTA negative for pulmonary emboli.
--- NOTE | 2018-10-18 15:50 | RADIOLOGY REPORT (SQ) ---
EXAM DESCRIPTION: CTA CHEST COMPLETED DATE/TIME: 10/18/2018 2:38 pm REASON FOR STUDY: chest pain shortness of breath COMPARISON: AP chest 10/17/2018 TECHNIQUE: CT scan of the chest performed using helical scanning technique with dynamic intravenous contrast injection. Images reviewed with lung, soft tissue and bone windows. Reconstructed coronal and sagittal MPR images reviewed. Additional 3 dimensional post-processing performed to develop Maximal Intensity Projection images (NH P). All images stored on PACS. All CT scanners at this facility use dose modulation, iterative reconstruction, and/or weight based d osing when appropriate to reduce radiation dose to as low as reasonably achievable (ALARA). [facility]: Dose Right [facility]: CareDose [facility]: Dose Right [facility]: Teradose 4D [facility]: [employer] CONTRAST TYPE AND DOSE: contrast/concentration: Isovue 350.00 mg/ml; Total Contrast Delivered: 60.0 ml; Total Saline Delivered: 80.0 ml Contrast bolus optimized for the pulmonary arteries. Not diagnostic for the aorta. RENAL FUNCTION: Creatinine 0.9 RADIATION DOSE: CT Rad equipment meets quality standard of care and radiation dose reduction techniq ues were employed. CTDIvol: 9.5 - 22.5 mGy. DLP: 376 mGy-cm. . LIMITATIONS: None. FINDINGS: LUNGS AND PLEURA: No masses, infiltrates, or pneumothorax. No pleural effusions or pleura l calcifications. AORTA AND GREAT VESSELS: No aneurysm. Contrast bolus not optimized for the aorta. HEART: No pericardial effusion. Moderate to marked cardiomegaly with diffuse coronary artery calcific ations PULMONARY ARTERIES: No emboli visualized in the main pulmonary arteries or the segmental branches. HILAR AND MEDIASTINAL STRUCTURES: No identified masses or abnormal nodes. HARDWARE: None in the chest. UPPER ABDOMEN: Post cholecystectomy THYROID AND OTHER SOFT TISSUES: Diffuse thyromegaly from goiter BONES: Diffuse degenerative disc changes throughout the thoracic spine. Lumbar fusion hardware at th e bottom edge of the field of view 3D MIPS: Confirm above findings. OTHER: No other significant finding. IMPRESSION: No CT angio evidence of acute pulmonary emboli. No acute infiltrates or pleural effusions Cardiomegaly COMMENT: Quality ID # [id number]: Final reports with documentation of one or more dose reduction techniques (e.g., Automated exposure control, adjustment of the mA and/or kV according to patient size, use of iterative reconstruction technique) TECHNICAL DOCUMENTATION: JOB ID: [id number] [employer]Z [email or web address]- All Rights Reserved Reading location - IP/workstation name: [email or web address]
[2018-10-18] MEDS: ATORVASTATIN CALCIUM 10 MG TABLET PO SCH (21:58)
[2018-10-18] MEDS: ASPIRIN 81 MG TABLET, CHEWABLE PO SCH (21:59)
[2018-10-19 06:20] LABS: ABSOLUTE EOSINOPHILS # (AUTO) 0.3 10^3/uL (0.0-0.6); ABSOLUTE LYMPHOCYTES (AUTO) 1.8 10^3/uL (0.5-4.7); ABSOLUTE MONOCYTES (AUTO) 0.5 10^3/uL (0.1-1.4); ABSOLUTE NEUT (AUTO) 3.5 10^3/uL (1.7-8.2); BASOPHILS % (AUTO) 0.8 % (0-2); EOSINOPHILS % (AUTO) 4.5 % (0-6); HEMATOCRIT 34.5 % (36.0-47.0); LYMPHOCYTES % (AUTO) 29.2 % (13-45); MEAN CORPUSCULAR HEMOGLOBIN 32.1 pg (27.0-33.4); MEAN CORPUSCULAR HGB CONC 34.7 g/dL (32.0-36.0); MEAN CORPUSCULAR VOLUME 92 fl (80-97); MONOCYTES % (AUTO) 8.4 % (3-13); PLATELET COUNT 134 10^3/uL (150-450); RED BLOOD COUNT 3.73 10^6/uL (3.72-5.28); RED CELL DISTRIBUTION WIDTH 14.2 % (11.5-14.0); SEGMENTED NEUTROPHILS % (AUTO) 57.1 % (42-78); TOTAL CELLS COUNTED % (AUTO) 100 %; WHITE BLOOD COUNT 6.1 10^3/uL (4.0-10.5)
[2018-10-19 06:40] LABS: ANION GAP 13 (5-19); BLOOD UREA NITROGEN 26 mg/dL (7-20); CALCIUM 9.4 mg/dL (8.4-10.2); CARBON DIOXIDE 26 mmol/L (22-30); CHLORIDE 105 mmol/L (98-107); GLUCOSE 112 mg/dL (75-110); POTASSIUM 4.4 mmol/L (3.6-5.0); SODIUM 144.2 mmol/L (137-145)
--- NOTE | 2018-10-19 08:55 | PDOC DISCHARGE SUMMARY ---
General - Admit/Disc Date/PCP Admission Date/Primary Care Provider: 10/17/18 12:13 JESSICA ZAPATA MD Discharge Date: 10/19/18 - Discharge Diagnosis (1) Chest pain, rule out acute myocardial infarction Is this a current diagnosis for this admission?: Yes Summary: Patient's all initial workup is negative Patient CT angiogram was all negative patient scheduled for the stress test per cardiology on Saturday (2) Coronary artery disease Is this a current diagnosis for this admission?: Yes Summary: Currently all stable (3) Chronic atrial fibrillation Is this a current diagnosis for this admission?: Yes Summary: Continues to current medication (4) Hypertension Is this a current diagnosis for this admission?: Yes Summary: Currently all stable (5) Chronic pain syndrome Is this a current diagnosis for this admission?: Yes Summary: Currently all stable (6) Kidney stone Is this a current diagnosis for this admission?: Yes Summary: Patients follow outpatient urology (7) Gastroesophageal reflux disease Is this a current diagnosis for this admission?: Yes - Additional Information Discharge Diet: Cardiac, Diabetic Discharge Activity: Activity As Tolerated Prescriptions: Apixaban [Eliquis 2.5 mg Tablet] 2.5 mg PO BID #60 tablet Nitroglycerin [Nitro-Dur 15 mg (0.6 mg/1 Hr) Transderm Patch] 1 each TD QAM #30 patch.td24 Ranolazine [Ranexa 500 mg Tab.sr] 500 mg PO Q12 #60 tab.sr.12h Home Medications: Buspirone HCl [Buspar 5 mg Tablet] 5 mg PO Q12 10/17/18 Digoxin [Lanoxin 0.125 mg Tablet] 0.125 mg PO DAILY 10/17/18 Diltiazem HCl [Cardizem LA] 300 mg PO DAILY 10/17/18 Furosemide [Lasix 40 mg Tablet] 40 mg PO DAILY 10/17/18 Methimazole [Tapazole 5 mg Tablet] 5 mg PO DAILY 10/17/18 Nitroglycerin 0.4 mg PO Q5MP PRN 10/17/18 Nitroglycerin 0.4 mg SL Q5MP PRN 10/17/18 Potassium Chloride [Klor-Con 10 Meq Capsule ER] 10 meq PO BID 10/17/18 Pravastatin Sodium [Pravachol] 40 mg PO DAILY 10/17/18 Sitagliptin Phosphate [Januvia] 100 mg PO DAILY 10/17/18 Telmisartan [Micardis 80 mg Tablet] 80 mg PO DAILY 10/17/18 Terazosin HCl [Hytrin] 10 mg PO DAILY 10/17/18 Tramadol HCl [Ultram 50 mg Tablet] 50 mg PO Q12HP PRN 10/17/18 Trospium Chloride [Trospium Chloride ER] 60 mg PO DAILY 10/17/18 Apixaban [Eliquis 2.5 mg Tablet] 2.5 mg PO BID #60 tablet 10/19/18 Nitroglycerin [Nitro-Dur 15 mg (0.6 mg/1 Hr) Transderm Patch] 1 each TD QAM #30 patch.td24 10/19/18 Ranolazine [Ranexa 500 mg Tab.sr] 500 mg PO Q12 #60 tab.sr.12h 10/19/18 History of Present Illness History of Present Illness: CARLOS GONZALEZ is a 88 year old female This is a 88-year-old female recently moved with her son last for a month with significant history of coronary artery disease status post stent placement history of chronic A. fib history of the hypertension's chronic arthritis and ongoing kidney stone problems with hematuria Patient is currently seeing Dr. Fernando outpatients cardiology and scheduled for the stress test on a Saturday According to the son patient is currently taking the nitroglycerin tablets as needed for the chest pain and patient currently using for the last several days and 2 days patient was brought to the emergency department with complaints of chest pain initial EKG and cardiac enzyme was all stable and patient was put on nitro drip When I saw the patient is patients denied any chest pain denied any shortness of breath Patient was seen by the cardiology Dr. Kearney and suggest to DC the Pradaxa and put him on Eliquis Patient's otherwise denied any short of breath and any cough no congestions no fever no chills and his son is on the bedside was concerned Hospital Course Hospital Course: This is a 88-year-old female with multiple medical problems came to the emergency department with anginal-like symptoms and the patient's initial cardiac enzyme EKG all stable patient seen by the cardiology and rule out the acute coronary syndromes Patient also had a CT angiogram was negative for any PE Patient otherwise doing well patient was taking the Pradaxa was currently DC'd by the cardiology and put on Eliquis Patient also scheduled for the stress test for her cardiology at [place] on Saturday Patient's p.o. intake is good patient's walk in the hallway without any problems denied any chest pain denied any shortness of the breath Discussed with the son regarding the patient's current condition and follow-up plan and changing the medications Physical Exam Vital Signs: Temp Pulse Resp BP Pulse Ox 98.1 F 66 16 141/63 H 97 10/19/18 07:23 10/19/18 07:23 10/19/18 07:23 10/19/18 07:23 10/19/18 07:23 Intake & Output 10/18/18 10/19/18 10/20/18 06:59 06:59 06:59 Intake Total 342 645 Output Total 350 0 Balance -8 645 Weight 63.9 kg 62.5 kg General appearance: PRESENT: no acute distress, well-developed, well-nourished Head exam: PRESENT: atraumatic, normocephalic Eye exam: PRESENT: conjunctiva pink, EOMI, PERRLA. ABSENT: scleral icterus Ear exam: PRESENT: normal external ear exam Mouth exam: PRESENT: moist, tongue midline Neck exam: PRESENT: full ROM. ABSENT: carotid bruit, JVD, lymphadenopathy, thyromegaly Respiratory exam: PRESENT: clear to auscultation christin Cardiovascular exam: PRESENT: RRR. ABSENT: diastolic murmur, rubs, systolic murmur Pulses: PRESENT: normal dorsalis pedis pul, +2 pedal pulses bilateral Vascular exam: PRESENT: normal capillary refill GI/Abdominal exam: PRESENT: normal bowel sounds, soft. ABSENT: distended, guarding, mass, organolmegaly, rebound, tenderness Rectal exam: PRESENT: deferred Extremities exam: ABSENT: pedal edema Neurological exam: PRESENT: alert, awake, oriented to person, oriented to place , oriented to time, oriented to situation, CN II-XII grossly intact. ABSENT: motor sensory deficit Psychiatric exam: PRESENT: appropriate affect, normal mood. ABSENT: homicidal ideation, suicidal ideation Skin exam: PRESENT: dry, intact, warm. ABSENT: cyanosis, rash Results Laboratory Results: 10/19/18 05:05 10/19/18 05:05 10/19/18 10/19/18 05:05 05:05 WBC 6.1 RBC 3.73 Hgb 12.0 Hct 34.5 L MCV 92 MCH 32.1 MCHC 34.7 RDW 14.2 H Plt Count 134 L Seg Neutrophils % 57.1 Lymphocytes % 29.2 Monocytes % 8.4 Eosinophils % 4.5 Basophils % 0.8 Absolute Neutrophils 3.5 Absolute Lymphocytes 1.8 Absolute Monocytes 0.5 Absolute Eosinophils 0.3 Absolute Basophils 0.0 Sodium 144.2 Potassium 4.4 Chloride 105 Carbon Dioxide 26 Anion Gap 13 BUN 26 H Creatinine 1.02 Est GFR ( Amer) > 60 Est GFR (Non-Af Amer) 51 L Glucose 112 H Calcium 9.4 10/17/18 10/17/18 10/17/18 13:43 13:43 13:43 Creatine Kinase 47 CK-MB (CK-2) 1.00 Troponin I 0.012 Cancelled NT-Pro-B Natriuret Pep 10/17/18 10/17/18 10/18/18 19:25 19:25 02:45 Creatine Kinase 47 45 CK-MB (CK-2) 0.98 Troponin I 0.014 NT-Pro-B Natriuret Pep 10/18/18 10/18/18 10/19/18 02:45 02:45 05:05 Creatine Kinase CK-MB (CK-2) 0.78 Troponin I < 0.012 0.013 NT-Pro-B Natriuret Pep 1090 H Impressions: Chest X-Ray 10/17/18 08:01 IMPRESSION: NO ACUTE RADIOGRAPHIC FINDING IN THE CHEST. Chest/Abdomen CTA 10/18/18 00:00 IMPRESSION: No CT angio evidence of acute pulmonary emboli. No acute infiltrates or pleural effusions Cardiomegaly Qualifiers - * PATIENT BEING DISCHARGED WITH ANY OF THE FOLLOWING DIAGNOSIS: No VTE patient discharged on overlapping Therapy?: Yes Plan Time Spent: Greater than 30 Minutes - Patient discharge home with a stable condition follow outpatient stress test
[2018-10-19] MEDS: DILTIAZEM HCL 120 MG CAP.SR.24H PO SCH (09:02)
[2018-10-19] MEDS: BUSPIRONE HCL 10 MG TABLET PO SCH (09:02)
[2018-10-19] MEDS: LOSARTAN POTASSIUM 50 MG TABLET PO SCH (09:02)
[2018-10-19] MEDS: DOXAZOSIN MESYLATE 4 MG TABLET PO SCH (09:02)
[2018-10-19] MEDS: DOCUSATE SODIUM 100 MG CAPSULE PO SCH (09:02)
[2018-10-19] MEDS: DILTIAZEM HCL 180 MG CAPSULE.CR PO SCH (09:04)
[2018-10-19] MEDS: DIGOXIN 0.125 MG TABLET PO SCH (09:04)
[2018-10-19] MEDS: APIXABAN 2.5 MG TABLET PO SCH (09:04)
[2018-10-19] MEDS: FUROSEMIDE 40 MG TABLET PO SCH (09:04)
[2018-10-19] MEDS: NITROGLYCERIN 15 MG (0.6 MG/1 HR) PATCH.TD24 TD SCH (09:05)
[2018-10-19] MEDS: RANOLAZINE 500 MG TAB.SR.12H PO SCH (09:05)
[2018-10-19] MEDS: METHIMAZOLE 5 MG TABLET PO SCH (09:05)
[2018-10-19] MEDS: POTASSIUM CHLORIDE 10 MEQ CAPSULE.ER PO SCH (09:06)
[2018-10-19 13:23] VITALS: BP 137/46
--- NOTE | 2018-10-19 14:00 | EKG REPORT ---
SEVERITY:- ABNORMAL ECG - ATRIAL FIBRILLATION LEFT BUNDLE BRANCH BLOCK : Confirmed by: Mendy Kearney MD 19-Oct-2018 13:59:28
== END 2018-10-19 15:39 | disposition home health service (06) | DRG 311 ==
LOC: ER 07:56 → EH 12:13 → 3W 15:10
PROVIDERS: ADMIT Family Medicine; ATTEND Family Medicine
DX: I20.9 Angina pectoris, unspecified (principal); Q61.01 Congenital single renal cyst; R07.9 Chest pain, unspecified; I25.10 Atherosclerotic heart disease of native coronary artery without angina pectoris; I48.2 Chronic atrial fibrillation; G89.4 Chronic pain syndrome; N20.0 Calculus of kidney; K21.9 Gastro-esophageal reflux disease without esophagitis; M19.90 Unspecified osteoarthritis, unspecified site; R31.9 Hematuria, unspecified; E78.00 Pure hypercholesterolemia, unspecified; J44.9 Chronic obstructive pulmonary disease, unspecified; E03.9 Hypothyroidism, unspecified; M10.9 Gout, unspecified; I44.7 Left bundle-branch block, unspecified; I11.0 Hypertensive heart disease with heart failure; I50.9 Heart failure, unspecified; E10.9 Type 1 diabetes mellitus without complications; Z79.899 Other long term (current) drug therapy; Z95.5 Presence of coronary angioplasty implant and graft; Z90.49 Acquired absence of other specified parts of digestive tract; Z90.710 Acquired absence of both cervix and uterus; Z88.4 Allergy status to anesthetic agent; Z86.73 Personal history of transient ischemic attack (TIA), and cerebral infarction without residual deficits
CPT/HCPCS: 36415; 71045; 71275; 80048; 80053; 80061; 82550; 82553; 82962; 83735; 83880; 84439; 84443; 84481; 84484; 85025; 93005; 93010; 96374; 99285; J1815; J1940; J3490

== ENCOUNTER 2019-01-01 04:49 | Emergency (ER) | payer OTHER, MEDICARE ==
--- NOTE | 2019-01-01 05:16 | ER Document Report ---
ED Fever - General Chief Complaint: Fever Stated Complaint: FEVER Time Seen by Provider: 01/01/19 05:05 Primary Care Provider: JESSICA ZAPATA MD [Primary Care Provider] - Follow up as needed Notes: 80-year-old female patient emergency department chief complaint of not feeling well. 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 Had nephrostomy tube on the left kidney. Had a bladder catheter which was removed several weeks ago. Has not felt like eating or drinking. Has not been doing well over the last several days. Has an appointment today with Dr. Zapata. This morning she began to feel ill and having pain in the lower abdomen. No vomiting. No diarrhea. No other major symptoms at this time. TRAVEL OUTSIDE OF THE [place] IN LAST 30 DAYS: No - HPI Onset: Yesterday Onset/Duration: Gradual, Worse Quality of pain: Achy Severity: Moderate - Related Data Allergies/Adverse Reactions: procaine [From Novocain] Allergy (Verified 01/01/19 05:00) Past Medical History - General Information source: Patient - Social History Smoking Status: Never Smoker Frequency of alcohol use: None Drug Abuse: None Family History: Reviewed & Not Pertinent Patient has suicidal ideation: No Patient has homicidal ideation: No - Past Medical History Cardiac Medical History: Reports: Hx Atrial Fibrillation, Hx Congestive Heart Failure, Hx Coronary Artery Disease, Hx Hypercholesterolemia, Hx Hypertension Pulmonary Medical History: Reports: Hx COPD Endocrine Medical History: Reports: Hx Diabetes Mellitus Type 1, Hx Diabetes Mellitus Type 2 Renal/ Medical History: Denies: Hx Peritoneal Dialysis GI Medical History: Reports: Hx Gastroesophageal Reflux Disease Musculoskeletal Medical History: Reports Hx Arthritis Psychiatric Medical History: Denies: Hx Depression Past Surgical History: Reports: Hx Appendectomy, Hx Cardiac Catheterization, Hx Cardiac Surgery - 2 stents, Hx Cholecystectomy, Hx Hysterectomy Review of Systems - Review of Systems Constitutional: Fever, Malaise, Weakness EENT: denies: Double vision, Difficulty swallowing, Throat swelling Cardiovascular: denies: Chest pain, Palpitations, Heart racing, Orthopnea Gastrointestinal: Abdominal pain, Nausea. denies: Diarrhea Genitourinary: Burning, Flank pain, Retention. denies: Hematuria, Urgency Musculoskeletal: denies: Back pain, Joint pain Skin: denies: Dryness, Lesions, Lumps, Rash Hematologic/Lymphatic: denies: Blood clots, Easy bleeding, Easy bruising Neurological/Psychological: Weakness. denies: Confusion, Numbness Physical Exam - Vital signs Vitals: BP Pulse Ox 131/51 H 99 01/01/19 04:58 01/01/19 04:58 Interpretation: Normal - General General appearance: Appears well, Alert - HEENT Head: Normocephalic, Atraumatic Eyes: Normal Pupils: PERRL - Respiratory Respiratory status: No respiratory distress Chest status: Nontender Breath sounds: Normal Chest palpation: Normal - Cardiovascular Rhythm: Regular Heart sounds: Normal auscultation Murmur: No - Abdominal Inspection: Normal Distension: Distended Bowel sounds: Normal Tenderness: Tender Organomegaly: No organomegaly - Back Back: Normal, Nontender - Extremities General upper extremity: Normal inspection, Nontender, Normal color, Normal ROM, Normal temperature General lower extremity: Normal inspection, Nontender, Normal color, Normal ROM, Normal temperature. No: Emmett's sign - Neurological Neuro grossly intact: Yes Cognition: Normal Orientation: AAOx4 Rolanda Coma Scale Eye Opening: Spontaneous [place] Coma Scale Verbal: Oriented [place]anda Coma Scale Motor: Obeys Commands [place] Coma Scale Total: 15 Speech: Normal Motor strength normal: LUE, RUE, LLE, RLE Sensory: Normal - Psychological Associated symptoms: Normal affect, Normal mood - Skin Skin Temperature: Warm Skin Moisture: Dry Skin Color: Normal Course - Re-evaluation Re-evalutation: 01/01/19 07:22 With the did a bedside ultrasound which showed a large distended bladder. Catheter was placed after patient attempted to urinate but only produced about 200 cc. Approximately 1000 cc in the [place] now. Large white blood cell clumping. Urine is consistent with a UTI. Patient is quite weak so will admit. We have given her antibiotics IV and a liter of fluid. I did talk to Dr. stone with urology in [place]. I will attempt to admit her to the hospital at this time. Consult with Dr. Zapata who would like to get a CT scan to make sure there is no obstructions and if that is okay then she can be admitted here. Laboratory 01/01/19 01/01/19 01/01/19 05:26 05:33 05:33 WBC 10.5 RBC 3.06 L Hgb 10.0 L Hct 29.4 L MCV 96 MCH 32.7 MCHC 34.0 RDW 13.2 Plt Count 132 L Seg Neutrophils % 78.8 H Lymphocytes % 7.9 L Monocytes % 10.1 Eosinophils % 2.9 Basophils % 0.3 Absolute Neutrophils 8.2 Absolute Lymphocytes 0.8 Absolute Monocytes 1.1 Absolute Eosinophils 0.3 Absolute Basophils 0.0 Sodium 139.4 Potassium 5.2 H Chloride 100 Carbon Dioxide 31 H Anion Gap 8 BUN 51 H Creatinine 1.27 H Est GFR ( Amer) 48 L Est GFR (Non-Af Amer) 40 L Glucose 127 H Calcium 9.7 Total Bilirubin 1.1 Direct Bilirubin 0.5 H Neonat Total Bilirubin Not Reportable Neonat Direct Bilirubin Not Reportable Neonat Indirect Bili Not Reportable AST 16 ALT 26 Alkaline Phosphatase 105 Creatine Kinase Total Protein 5.4 L Albumin 2.9 L Urine Color YELLOW Urine Appearance TURBID Urine pH 8.0 Ur Specific [place] 1.015 Urine Protein 100 H Urine Glucose (UA) NEGATIVE Urine Ketones NEGATIVE Urine Blood SMALL H Urine Nitrite NEGATIVE Urine Bilirubin NEGATIVE Urine Urobilinogen 2.0 H Ur Leukocyte Esterase LARGE H Urine WBC (Auto) >182 Urine RBC (Auto) 72 Urine Bacteria (Auto) 3+ Urine WBC Clumps MANY Squamous Epi Cells Auto 1 U Non-Squamous Epis Auto 2 Urine Mucus (Auto) RARE Urine Ascorbic Acid NEGATIVE Influenza A (Rapid) Influenza B (Rapid) 01/01/19 01/01/19 05:33 05:36 WBC RBC Hgb Hct MCV MCH MCHC RDW Plt Count Seg Neutrophils % Lymphocytes % Monocytes % Eosinophils % Basophils % Absolute Neutrophils Absolute Lymphocytes Absolute Monocytes Absolute Eosinophils Absolute Basophils Sodium Potassium Chloride Carbon Dioxide Anion Gap BUN Creatinine Est GFR ( Amer) Est GFR (Non-Af Amer) Glucose Calcium Total Bilirubin Direct Bilirubin Neonat Total Bilirubin Neonat Direct Bilirubin Neonat Indirect Bili AST ALT Alkaline Phosphatase Creatine Kinase < 20 L Total Protein Albumin Urine Color Urine Appearance Urine pH Ur Specific [place] Urine Protein Urine Glucose (UA) Urine Ketones Urine Blood Urine Nitrite Urine Bilirubin Urine Urobilinogen Ur Leukocyte Esterase Urine WBC (Auto) Urine RBC (Auto) Urine Bacteria (Auto) Urine WBC Clumps Squamous Epi Cells Auto U Non-Squamous Epis Auto Urine Mucus (Auto) Urine Ascorbic Acid Influenza A (Rapid) NEGATIVE Influenza B (Rapid) NEGATIVE - Vital Signs Vital signs: Temp Pulse Resp BP Pulse Ox 99.4 F 63 133/51 H 99 01/01/19 04:59 01/01/19 04:59 01/01/19 05:01 01/01/19 05:01 - Laboratory Result Diagrams: 01/01/19 05:33 01/01/19 05:33 Laboratory results interpreted by me: 01/01/19 01/01/19 01/01/19 05:26 05:33 05:33 RBC 3.06 L Hgb 10.0 L Hct 29.4 L Plt Count 132 L Seg Neutrophils % 78.8 H Lymphocytes % 7.9 L Potassium 5.2 H Carbon Dioxide 31 H BUN 51 H Creatinine 1.27 H Est GFR ( Amer) 48 L Est GFR (Non-Af Amer) 40 L Glucose 127 H Direct Bilirubin 0.5 H Creatine Kinase Total Protein 5.4 L Albumin 2.9 L Urine Protein 100 H Urine Blood SMALL H Urine Urobilinogen 2.0 H Ur Leukocyte Esterase LARGE H 01/01/19 05:33 RBC Hgb Hct Plt Count Seg Neutrophils % Lymphocytes % Potassium Carbon Dioxide BUN Creatinine Est GFR ( Amer) Est GFR (Non-Af Amer) Glucose Direct Bilirubin Creatine Kinase < 20 L Total Protein Albumin Urine Protein Urine Blood Urine Urobilinogen Ur Leukocyte Esterase Discharge - Discharge Clinical Impression: Acute urinary retention Urinary tract infection Qualifiers: Urinary tract infection type: site unspecified Hematuria presence: without hematuria Qualified Code(s): N39.0 - Urinary tract infection, site not specified Condition: Good Disposition: ADMITTED INPATIENT Admitting Provider: Zapata Unit Admitted: Medical Floor Referrals: JESSICA ZAPATA MD [Primary Care Provider] - Follow up as needed
[2019-01-01 05:43] LABS: ABSOLUTE EOSINOPHILS # (AUTO) 0.3 10^3/uL (0.0-0.6); ABSOLUTE LYMPHOCYTES (AUTO) 0.8 10^3/uL (0.5-4.7); ABSOLUTE MONOCYTES (AUTO) 1.1 10^3/uL (0.1-1.4); ABSOLUTE NEUT (AUTO) 8.2 10^3/uL (1.7-8.2); BASOPHILS % (AUTO) 0.3 % (0-2); EOSINOPHILS % (AUTO) 2.9 % (0-6); HEMATOCRIT 29.4 % (36.0-47.0); LYMPHOCYTES % (AUTO) 7.9 % (13-45); MEAN CORPUSCULAR HEMOGLOBIN 32.7 pg (27.0-33.4); MEAN CORPUSCULAR VOLUME 96 fl (80-97); MONOCYTES % (AUTO) 10.1 % (3-13); PLATELET COUNT 132 10^3/uL (150-450); RED BLOOD COUNT 3.06 10^6/uL (3.72-5.28); RED CELL DISTRIBUTION WIDTH 13.2 % (11.5-14.0); SEGMENTED NEUTROPHILS % (AUTO) 78.8 % (42-78); TOTAL CELLS COUNTED % (AUTO) 100 %; WHITE BLOOD COUNT 10.5 10^3/uL (4.0-10.5)
[2019-01-01] MEDS ORDERED: NORMAL SALINE 1000 ML 1,000 ML IV ONE (05:59)
[2019-01-01 06:01] LABS: APPEARANCE,URINE TURBID; BILIRUBIN,URINE NEGATIVE (NEGATIVE); GLUCOSE, URINE NEGATIVE (NEGATIVE); KETONES,URINE NEGATIVE (NEGATIVE); LEUKOCYTE ESTERASE,URINE LARGE (NEGATIVE); NITRITE,URINE NEGATIVE (NEGATIVE); PROTEIN,URINE 100 mg/dL (NEGATIVE); URINE SPECIFIC GRAVITY 1.015
[2019-01-01 06:02] LABS: COLOR,URINE YELLOW
[2019-01-01 06:04] LABS: ALANINE AMINOTRANSFERASE 26 U/L (9-52); ALBUMIN 2.9 g/dL (3.5-5.0); ALKALINE PHOSPHATASE 105 U/L (38-126); ANION GAP 8 (5-19); ASPARTATE AMINO TRANSFERASE 16 U/L (14-36); BILIRUBIN,DIRECT 0.5 mg/dL (0.0-0.4); BILIRUBIN,TOTAL 1.1 mg/dL (0.2-1.3); BLOOD UREA NITROGEN 51 mg/dL (7-20); CALCIUM 9.7 mg/dL (8.4-10.2); CARBON DIOXIDE 31 mmol/L (22-30); CHLORIDE 100 mmol/L (98-107); GLUCOSE 127 mg/dL (75-110); POTASSIUM 5.2 mmol/L (3.6-5.0); SODIUM 139.4 mmol/L (137-145); TOTAL PROTEIN 5.4 g/dL (6.3-8.2)
--- NOTE | 2019-01-01 06:06 | RADIOLOGY REPORT (SQ) ---
EXAM DESCRIPTION: XR CHEST 1 VIEW COMPLETED DATE/TME: 01/01/2019 05:15 CLINICAL HISTORY: 88 years, Female, sob Comparison: None FINDINGS/impression: Obscuration of the left hemidiaphragm may be related to soft tissue attenuation versus airspace disease. No pleural effusion. No pneumothorax. Cardiac silhouette is enlarged. No acute osseous abnormality. Soft tissues are unremarkable.
[2019-01-01] MEDS ORDERED: CEFTRIAXONE INJ 1000 MG VIAL IV ONE (06:10)
[2019-01-01 06:41] LABS: A TYPE INFLUENZA AG NEGATIVE (NEGATIVE); B INFLUENZA AG NEGATIVE (NEGATIVE)
--- NOTE | 2019-01-01 08:35 | RADIOLOGY REPORT (SQ) ---
EXAM DESCRIPTION: CT ABD/PELVIS NO ORAL OR IV COMPLETED DATE/TIME: 01/01/2019 8:07 am REASON FOR STUDY: left flank pain COMPARISON: 06/25/2018 TECHNIQUE: CT scan of the abdomen and pelvis performed without intravenous or oral contrast. Images reviewed with lung, soft tissue, and bone windows. Reconstructed coronal and sagittal MPR images revi ewed. All images stored on PACS. All CT scanners at this facility use dose modulation, iterative reconstruction, and/or weight based d osing when appropriate to reduce radiation dose to as low as reasonably achievable (ALARA). [facility]: Dose Right [facility]: CareDose [facility]: Dose Right [facility]: Teradose 4D [facility]: Smart [employer] RADIATION DOSE: CT Rad equipment meets quality standard of care and radiation dose reduction techniq ues were employed. CTDIvol: 11.0 mGy. DLP: 462 mGy-cm.mGy. LIMITATIONS: None. FINDINGS: LOWER CHEST: Small bilateral pleural effusions. NON-CONTRASTED LIVER, SPLEEN, ADRENALS: Evaluation limited by lack of IV contrast. No identified sign ificant masses. PANCREAS: No masses. No peripancreatic inflammatory changes. GALLBLADDER: Surgically absent. RIGHT KIDNEY AND URETER: No suspicious masses. Assessment limited by lack of IV contrast. No signif icant calcifications. No hydronephrosis or hydroureter. LEFT KIDNEY AND URETER: No suspicious masses. Assessment limited by lack of IV contrast. There is a 6 mm obstructive calculus of the mid to distal left ureter with severe associated hydronephrosis and hydroureter. AORTA AND RETROPERITONEUM: No aneurysm. No retroperitoneal masses or adenopathy. Calcific atheroscle rosis. BOWEL AND PERITONEAL CAVITY: No obvious masses or inflammatory changes. Sigmoid diverticulosis. Tra ce ascites. APPENDIX: Not clearly visualized. PELVIS, BLADDER, AND ABDOMINAL WALL:No abnormal masses. The bladder is decompressed by [place] cathete r. BONES: No significant findings. Status post posterior lumbar fusion. OTHER: No other significant finding. IMPRESSION: 1. There is a 6 mm obstructive calculus of the mid to distal left ureter with severe ass ociated hydronephrosis and hydroureter. 2. Nonspecific small volume ascites, possibly reactive. 3. Small bilateral pleural effusions. COMMENT: Quality ID # [id number]: Final reports with documentation of one or more dose reduction techniques (e.g., Automated exposure control, adjustment of the mA and/or kV according to patient size, use of iterative reconstruction technique) TECHNICAL DOCUMENTATION: JOB ID: [id number] [employer]- All Rights Reserved Reading location - IP/workstation name: [email or web address]
[2019-01-01 13:04] VITALS: BP 141/60
--- NOTE | 2019-01-01 17:17 | PDOC H&P ---
History of Present Illness Admission Date/PCP: 01/01/19 09:50 JESSICA ZAPATA MD Patient complains of: abd pain/not feeling well History of Present Illness: CARLOS GONZALEZ is a 88 year old female pt was brought in er by ems due to abd pain and not feeling well and urinary retention pt had kidny stone sx done last month by dr joyner d/w son on bed side order ct scan Past Medical History Cardiac Medical History: Reports: Atrial Fibrillation, Congestive Heart Failure, Coronary Artery Disease, Hyperlipidema, Hypertension Pulmonary Medical History: Reports: Chronic Obstructive Pulmonary Disease (COPD) Endocrine Medical History: Reports: Diabetes Mellitus Type 1, Diabetes Mellitus Type 2 GI Medical History: Reports: Gastroesophageal Reflux Disease Musculoskeltal Medical History: Reports: Arthritis Psychiatric Medical History: Denies: Depression Hematology: Reports: Anemia Past Surgical History Past Surgical History: Reports: Appendectomy, Cardiac Catheterization, Cholecystectomy, Hysterectomy Social History Smoking Status: Never Smoker Frequency of Alcohol Use: None Hx Recreational Drug Use: No Hx Prescription Drug Abuse: No Family History Family History: Reviewed & Not Pertinent Parental Family History Reviewed: Yes Children Family History Reviewed: Yes Sibling(s) Family History Reviewed.: Yes Medication/Allergy Allergies/Adverse Reactions: procaine [From Novocain] Allergy (Verified 01/01/19 05:00) Physical Exam Vital Signs: Temp Pulse Resp BP Pulse Ox 98.1 F 63 18 141/60 H 99 01/01/19 11:01 01/01/19 04:59 01/01/19 13:03 01/01/19 13:03 01/01/19 13:03 Intake & Output 12/31/18 01/01/19 01/02/19 06:59 06:59 06:59 Intake Total 1000 Output Total 450 Balance 550 Weight 61.87 kg General appearance: PRESENT: no acute distress, well-developed, well-nourished Head exam: PRESENT: atraumatic, normocephalic Eye exam: PRESENT: conjunctiva pink, EOMI, PERRLA. ABSENT: scleral icterus Ear exam: PRESENT: normal external ear exam Mouth exam: PRESENT: moist, tongue midline Neck exam: PRESENT: full ROM. ABSENT: carotid bruit, JVD, lymphadenopathy, thyromegaly Respiratory exam: PRESENT: clear to auscultation christin Cardiovascular exam: PRESENT: RRR. ABSENT: diastolic murmur, rubs, systolic murmur Vascular exam: PRESENT: normal capillary refill GI/Abdominal exam: PRESENT: normal bowel sounds, soft. ABSENT: distended, guarding, mass, organolmegaly, rebound, tenderness Rectal exam: PRESENT: deferred Neurological exam: PRESENT: alert, awake, oriented to person, oriented to place, oriented to time, oriented to situation, CN II-XII grossly intact. ABSENT: motor sensory deficit Psychiatric exam: PRESENT: appropriate affect, normal mood. ABSENT: homicidal ideation, suicidal ideation Skin exam: PRESENT: dry, intact, warm. ABSENT: cyanosis, rash Results Laboratory Results: 01/01/19 05:33 01/01/19 05:33 01/01/19 01/01/19 01/01/19 05:26 05:33 05:33 WBC 10.5 RBC 3.06 L Hgb 10.0 L Hct 29.4 L MCV 96 MCH 32.7 MCHC 34.0 RDW 13.2 Plt Count 132 L Seg Neutrophils % 78.8 H Lymphocytes % 7.9 L Monocytes % 10.1 Eosinophils % 2.9 Basophils % 0.3 Absolute Neutrophils 8.2 Absolute Lymphocytes 0.8 Absolute Monocytes 1.1 Absolute Eosinophils 0.3 Absolute Basophils 0.0 Sodium 139.4 Potassium 5.2 H Chloride 100 Carbon Dioxide 31 H Anion Gap 8 BUN 51 H Creatinine 1.27 H Est GFR ( Amer) 48 L Est GFR (Non-Af Amer) 40 L Glucose 127 H Lactic Acid Calcium 9.7 Total Bilirubin 1.1 AST 16 ALT 26 Alkaline Phosphatase 105 Total Protein 5.4 L Albumin 2.9 L Urine Color YELLOW Urine Appearance TURBID Urine pH 8.0 Ur Specific [place] 1.015 Urine Protein 100 H Urine Glucose (UA) NEGATIVE Urine Ketones NEGATIVE Urine Blood SMALL H Urine Nitrite NEGATIVE Ur Leukocyte Esterase LARGE H Urine WBC (Auto) >182 Urine RBC (Auto) 72 01/01/19 06:49 WBC RBC Hgb Hct MCV MCH MCHC RDW Plt Count Seg Neutrophils % Lymphocytes % Monocytes % Eosinophils % Basophils % Absolute Neutrophils Absolute Lymphocytes Absolute Monocytes Absolute Eosinophils Absolute Basophils Sodium Potassium Chloride Carbon Dioxide Anion Gap BUN Creatinine Est GFR ( Amer) Est GFR (Non-Af Amer) Glucose Lactic Acid 0.9 Calcium Total Bilirubin AST ALT Alkaline Phosphatase Total Protein Albumin Urine Color Urine Appearance Urine pH Ur Specific [place] Urine Protein Urine Glucose (UA) Urine Ketones Urine Blood Urine Nitrite Ur Leukocyte Esterase Urine WBC (Auto) Urine RBC (Auto) 01/01/19 05:33 Creatine Kinase < 20 L Impressions: Abdomen/Pelvis CT 01/01/19 07:21 IMPRESSION: 1. There is a 6 mm obstructive calculus of the mid to distal left ureter with severe associated hydronephrosis and hydroureter. 2. Nonspecific small volume ascites, possibly reactive. 3. Small bilateral pleural effusions. Assessment & Plan - Diagnosis (1) Acute urinary retention Is this a current diagnosis for this admission?: Yes (2) Obstructive uropathy Is this a current diagnosis for this admission?: Yes (3) Ureteral stone with hydronephrosis Is this a current diagnosis for this admission?: Yes (4) Urinary tract infection Qualifiers: Urinary tract infection type: site unspecified Hematuria presence: without hematuria Qualified Code(s): N39.0 - Urinary tract infection, site not specified Is this a current diagnosis for this admission?: Yes (5) Coronary artery disease Is this a current diagnosis for this admission?: Yes (6) Gastroesophageal reflux disease Qualifiers: Is this a current diagnosis for this admission?: Yes (7) Hypertension Qualifiers: Is this a current diagnosis for this admission?: Yes - Time Time Spent: 30 to 50 Minutes Medications reviewed and adjusted accordingly: Yes Anticipated discharge: [facility] Within: Other - Inpatient Certification Based on my medical assessment, after consideration of the patient's comorbidities, presenting symptoms, or acuity I expect that the services needed warrant INPATIENT care.: Yes I certify that my determination is in accordance with my understanding of Medicare's requirements for reasonable and necessary INPATIENT services [42 CFR 412.3e].: Yes Medical Necessity: Need for IV Antibiotics Post Hospital Care: D/C [employer] Documentation - Plan Summary Plan Summary: transfer to [facility] due to no urolgoy service in community health
== END 2019-01-01 13:18 | disposition short-term general hospital (02) ==
LOC: ER 04:49 → EH 09:50 → UNDOADMIN 09:50 → ER 13:18
DX: R33.9 Retention of urine, unspecified (principal); N13.2 Hydronephrosis with renal and ureteral calculous obstruction; N39.0 Urinary tract infection, site not specified; N13.9 Obstructive and reflux uropathy, unspecified; R50.9 Fever, unspecified
CPT/HCPCS: 36415; 83605; 87040; 87086; 82550; 85025; 87088; 80053; 81001; 87186; 87804; 71045; 74176; J0696; J7030